=== PATIENT | male | born 1940 | race Caucasian/White ===

== ENCOUNTER 2017-01-04 10:44 | Outpatient (CLI) | payer MEDICARE | END 2017-01-04 10:45 | disposition home or self-care (01) | LOC: LAB 10:44 | PROVIDERS: ATTEND Internal Medicine | DX: Z01.818 Encounter for other preprocedural examination (principal) | CPT/HCPCS: 87640 ==

== ENCOUNTER 2020-04-05 05:33 | Emergency (ER) | payer MEDICARE ==
--- NOTE | 2020-04-05 05:47 | ED Physician Documentation ---
PD HPI ABD PAIN - Stated complaint Stated Complaint: ABD PX - History obtained from History obtained from: Patient - History of Present Illness Timing - onset: How many hours ago (5) Timing - duration: Hours (5) Timing - details: Abrupt onset, Still present Quality: Aching, Sharp, Pain Location: RLQ Radiation: Right flank Improved by: No: Laying still, Meds (tried Tylenol at home) Worsened by: No: Moving, Breathing, Palpation Associated symptoms: Nausea, Vomiting (few times, after pain started). No: Fever, Diarrhea, Dysuria, Hematuria, Chest pain Similar symptoms before: Has not had sx before Recently seen: Clinic (Valuated for right shoulder pain and as surgery planned April 21 but has preop cardiology clearance in progress with echo planned this week.) Review of Systems Constitutional: denies: Fever, Chills Nose: denies: Rhinorrhea / runny nose, Congestion Throat: denies: Sore throat Respiratory: denies: Cough GI: reports: Abdominal Pain (just this overnight) : denies: Dysuria, Hesitancy Neurologic: denies: Generalized weakness, Near syncope PD PAST MEDICAL HISTORY - Past Medical History Cardiovascular: Hypertension, Atrial flutter - Past Surgical History Past Surgical History: No General: Bowel surgery Ortho: Other - Present Medications Home Medications: Ambulatory Orders Medication Instructions Recorded Confirmed Ibuprofen 800 mg PO BID 09/29/13 09/29/13 Penicillin V Potassium 500 mg PO Q6H 10 Days tablet 09/29/13 Ondansetron Odt [Zofran] 4 mg TL Q6H PRN #10 tablet 04/05/20 Tamsulosin [Flomax] 0.4 mg PO DAILY #5 capsule 04/05/20 oxyCODONE [Roxicodone] 5 mg PO Q4-6H PRN #20 tablet 04/05/20 - Allergies Allergies/Adverse Reactions: Allergies Allergy/AdvReac Type Severity Reaction Status Date / Time No Known Drug Allergies Allergy Verified 09/29/13 17:45 - Social History Does the pt smoke?: Yes Smoking Status: Current every day smoker Does the pt drink ETOH?: No Does the pt have substance abuse?: No - Immunizations Immunizations: TDAP >10years/unknown - POLST Patient has POLST: No PD ED PE NORMAL - Vitals Vital signs reviewed: Yes - General General: Alert and oriented X 3, Well developed/nourished, Other (Is in considerable appearance of pain due to the right flank. He is moving around see mikayla trying to be comfortable. ) - Neck Neck: Supple, no meningeal sign, No adenopathy - Cardiac Cardiac: RRR, Other (1/6 murmur left heart. Regular rate of heart. ) - Respiratory Respiratory: Clear bilaterally - Abdomen Abdomen: Normal bowel sounds, Soft, Non tender, Non distended, No organomegaly - Male Male : Deferred - Rectal Rectal: Deferred - Back Back: Other (moderate right CVA tenderness. ) - Derm Derm: Normal color, Warm and dry - Extremities Extremities: No tenderness to palpate, Normal ROM s pain, No edema, No calf tenderness / cord - Neuro Neuro: Alert and oriented X 3, No motor deficit, Normal speech Eye Opening: Spontaneous Motor: Obeys Commands Verbal: Oriented GCS Score: 15 Results - Vitals Vitals: Vital Signs - 24 hr 04/05/20 04/05/20 05:45 06:06 Temperature 36.8 C Heart Rate 108 H 98 Respiratory 18 22 Rate Blood Pressure 142/98 H 142/90 H O2 Saturation 100 98 Oxygen O2 Source Room air - EKG (time done) presentation Rhythm: NSR (appears sinus with IVCD and LVH with repol changes. ) Intervals: Wide QRS QRS: LVH Ischemia: Non specific changes - Labs Labs: Laboratory Tests 04/05/20 04/05/20 04/05/20 06:00 06:00 06:25 WBC 10.2 RBC 4.31 L Hgb 13.7 L Hct 42.1 MCV 97.7 H MCH 31.8 H MCHC 32.5 RDW 13.2 Plt Count 235 MPV 9.7 Neut # (Auto) 8.8 H Lymph # (Auto) 0.7 L [place] # (Auto) 0.6 Eos # (Auto) 0.0 Baso # (Auto) 0.0 Absolute Nucleated RBC 0.00 Nucleated RBC % 0.0 Sodium 136 Potassium 4.4 Chloride 101 Carbon Dioxide 25 Anion Gap 10.0 BUN 24 H Creatinine 1.3 H Estimated GFR (MDRD) 53 L Glucose 156 H Calcium 9.8 Total Bilirubin 0.8 AST 22 ALT 22 Alkaline Phosphatase 35 L Total Protein 7.4 Albumin 4.6 Globulin 2.8 Albumin/Globulin Ratio 1.6 Lipase 25 Urine Color YELLOW Urine Clarity CLEAR Urine pH 6.0 Ur Specific [place] 1.025 Urine Protein NEGATIVE Urine Glucose (UA) NEGATIVE Urine Ketones NEGATIVE Urine Occult Blood LARGE H Urine Nitrite NEGATIVE Urine Bilirubin NEGATIVE Urine Urobilinogen 0.2 (NORMAL) Ur Leukocyte Esterase NEGATIVE Urine RBC TNTC H Urine WBC 0-3 Ur Squamous Epith Cells NONE SEEN Urine Crystals 3-5 Calcium Oxalate Urine Bacteria Few Ur Microscopic Review INDICATED Urine Culture Comments NOT INDICATED - Rads (name of study) No standard instances Radiology: Prelim report reviewed, EMP read contemporaneously (6 mm stone proximal third right ureter with mod hydroureter and hydronephrosis. ), See rad report PD MEDICAL DECISION MAKING - ED course Complexity details: reviewed results, re-evaluated patient (his pain is mostly gone with meds IV here. No nausea. CT showing ureteral stone. Discussed findings with patient. ), considered differential, d/w patient Departure - Departure Disposition: 01 Home, Self Care Clinical Impression: Right sided abdominal pain, Ureterolithiasis Condition: Stable Record reviewed to determine appropriate education?: Yes Instructions: ED Stone Renal W Colic Follow-Up: Lily Garcia MD [Primary Care Provider] - Prescriptions: Tamsulosin [Flomax] 0.4 mg PO DAILY #5 capsule oxyCODONE [Roxicodone] 5 mg PO Q4-6H PRN #20 tablet PRN Reason: Pain Ondansetron Odt [Zofran] 4 mg TL Q6H PRN #10 tablet PRN Reason: Nausea / Vomiting Comments: You do have a stone passing down the ureter on the right side which is what is causing your pain. It is good that you are feeling improved at this time and that likely is due to the pain medicine as well as reduction and spasming of the ureter to allow better flow of urine. Stay well-hydrated but there is no need to over hydrate. Continue usual m edications otherwise. Tylenol or ibuprofen if needed for basic pain. At oxycodone if needed for worse pain and ondansetron if needed for nausea. We also can add tamsulosin which is a medication that will reduce spasming of the ureter and have some added benefit in passing the stone. Follow-up with your primary care if not improved well over the next few days. Your primary provider may refer you to a urologist if the pain persists more than several days to a week or so. Return to the ER if severe pain not controlled with the above medications.
[2020-04-05] MEDS ORDERED: ONDANSETRON 4 MG/2 ML VIAL IVP STA (06:10)
[2020-04-05] MEDS ORDERED: SODIUM CHLORIDE 0.9% 1,000 ML IV STA (06:10)
[2020-04-05] MEDS ORDERED: HYDROmorphone 1 MG/ML CARPUJECT IVP STA (06:10)
[2020-04-05] MEDS ORDERED: KETOROLAC 15 MG/ML VIAL IVP STA (06:12)
[2020-04-05 06:16] LABS: BASOPHILS % (AUTO) 0.2 %; EOSINOPHILS % (AUTO) 0.1 %; HGB - HEMOGLOBIN 13.7 g/dL (14.0-18.0); LYMPHOCYTES # (AUTO) 0.7 10^3/uL (1.5-3.5); LYMPHOCYTES % (AUTO) 6.9 %; MEAN CORPUSCULAR HEMOGLOBIN 31.8 pg (27.0-31.0); MEAN CORPUSCULAR HGB CONC 32.5 g/dL (32.0-36.0); MEAN CORPUSCULAR VOLUME 97.7 fL (80.0-94.0); MEAN PLATELET VOLUME 9.7 fL (7.4-11.4); MONOCYTES # (AUTO) 0.6 10^3/uL (0.0-1.0); MONOCYTES % (AUTO) 5.7 %; NEUTROPHILS # (AUTO) 8.8 10^3/uL (1.5-6.6); NEUTROPHILS % (AUTO) 86.6 %; PLT - PLATELET COUNT 235 10^3/uL (130-450); RED BLOOD COUNT 4.31 10^6/uL (4.70-6.10); RED CELL DISTRIBUTION WIDTH 13.2 % (12.0-15.0); WHITE BLOOD COUNT 10.2 x10^3/uL (4.8-10.8)
[2020-04-05 06:29] LABS: ALBUMIN 4.6 g/dL (3.2-5.5); ALBUMIN/GLOBULIN RATIO 1.6 (1.0-2.2); BILIRUBIN,TOTAL 0.8 mg/dL (0.2-1.0); CALCIUM 9.8 mg/dL (8.5-10.3); CREATININE 1.3 mg/dL (0.6-1.2); TOTAL PROTEIN 7.4 g/dL (6.7-8.2)
[2020-04-05] MEDS ORDERED: IOVERSOL 320 100 ML VIAL IVP ONE ×2 (06:41→07:03)
[2020-04-05 06:42] LABS: BILIRUBIN,URINE NEGATIVE (NEGATIVE); GLUCOSE, URINE (UA) NEGATIVE (NEGATIVE); KETONES,URINE (UA) NEGATIVE (NEGATIVE); LEUKOCYTE ESTERASE, URINE NEGATIVE (NEGATIVE); NITRITE,URINE NEGATIVE (NEGATIVE); OCCULT BLOOD,URINE LARGE (NEGATIVE); PROTEIN,URINE NEGATIVE (NEGATIVE); UROBILINOGEN,URINE 0.2 (NORMAL) E.U./dL (NORMAL)
[2020-04-05 06:44] LABS: CLARITY,URINE CLEAR (CLEAR)
[2020-04-05 06:54] LABS: BACTERIA,URINE Few /HPF (None Seen); CRYSTALS,URINE 3-5 Calcium Oxalate /LPF; RBC,URINE TNTC /HPF (0-5); SQUAMOUS EPITHELIAL CELL,UR NONE SEEN (<= Few)
[2020-04-05] MEDS ORDERED: TAMSULOSIN 0.4 MG CAPSULE PO STA (07:27)
[2020-04-05 08:06] VITALS: BP 136/74
--- NOTE | 2020-04-05 09:34 | ED Physician Documentation ---
ED Addendum - Addendum Addendum: 04/05/20 09:33 Dr. Ramirez, radiologist called me about liver enhancement that will require dedicated liver MRI. Discussed with nursing who will call Mr. Acosta to discuss need for follow-up
--- NOTE | 2020-04-05 09:34 | CT Report ---
PROCEDURE: Abdomen/Pelvis W INDICATIONS: Abdominal pain, acute, nonlocalized CONTRAST: IV CONTRAST: Optiray 320 ml: 100 PO CONTRAST: *NO PO CONTRAST TECHNIQUE: After the administration of nonionic IV contrast, 5 mm thick sections acquired from the diaphragms to the symphysis. 5 mm thick coronal and sagittal reformats were acquired. For radiation dose reducti on, the following was used: automated exposure control, adjustment of mA and/or kV according to sajan ent size. COMPARISON: None. FINDINGS: Image quality: Excellent. ABDOMEN: Lung bases: Lung bases are clear. Heart size is normal. There is a small hiatal hernia seen. Moder ate coronary artery calcification is seen. Solid organs: The liver demonstrates normal size. Within the right inferior posterior liver (segment 6) there is enhancing focus seen laterally, as on series 3 image 35 that measures approximately 1.7 c m. The liver otherwise is unremarkable. Spleen demonstrates normal size, without focal abnormalities. Gallbladder wall does not appear thicke tierney. Biliary system is non dilated. Pancreas enhances normally. No adrenal nodules. There is an obstructing stone seen involving the right mid ureter, as on series 3 image 34 and on ser ies 3 image 51 that measures up to 6 mm. There is associated moderate to prominent right-sided hydrou reter and hydronephrosis. A mild degree of right-sided perinephric fat straining can also be seen. There is a nonobstructing left-sided kidney stone that measures up to 1 cm. Peritoneum and bowel: Bowel loops demonstrate normal wall thickness and caliber. No free fluid or a ir. Diverticulosis can be seen, without jackelyn findings of active diverticulitis. Nodes and vessels: No retroperitoneal or mesenteric adenopathy by size criteria. Aorta and inferior vena cava are normal in size. Miscellaneous: No ventral hernias. PELVIS: Genitourinary: Bladder wall thickness is normal. Miscellaneous: No inguinal hernias or adenopathy. Bones: No suspicious bony lesions. No vertebral body compression fractures. Relatively prominent l ower lumbar spine degenerative changes are seen. At least moderate degenerative change can be seen of the hip joints. IMPRESSION: 6 mm obstructing stone seen within the right mid ureter, with associated right-sided hyd ronephrosis, hydroureter, and prior precasting. No obstructing 1 cm left-sided kidney stone Focal area of hyperenhancement involving the liver. In a patient of this age, differential diagnosis includes metastatic disease. If it would be helpful for clinical management decision making, then ple ase consider a dedicated liver protocol MRI (without and with IV contrast) for further evaluation (as suming that there is no contraindication). Incidental note is made of: Small hiatal hernia Atherosclerotic calcification, including moderate coronary artery calcification Diverticulosis can be seen, without jackelyn findings of active diverticulitis. Note: Mild discrepancy from the preliminary report and recommendations discussed by telephone with Dr Eddei Jon at 8:32 AM [place] time on 04/05/2020. Reviewed by: Roger Ramirez MD on 04/05/2020 8:33 AM [place] Approved by: Roger Ramirez MD on 04/05/2020 8:33 AM [place] Station ID: [id number]
== END 2020-04-05 08:06 | disposition home or self-care (01) ==
LOC: ED 05:33
DX: N20.1 Calculus of ureter (principal); R10.31 Right lower quadrant pain; I10 Essential (primary) hypertension; F17.200 Nicotine dependence, unspecified, uncomplicated
CPT/HCPCS: 36415; 74177; 80053; 81001; 83690; 85025; 93005; 96374; 96375; 99284; A9270; J1170; Q9967; 81003; 87086

== ENCOUNTER 2020-04-09 04:56 | Emergency (ER) | payer MEDICARE ==
[2020-04-09] MEDS ORDERED: SODIUM CHLORIDE 0.9% 1,000 ML IV STA (05:32)
[2020-04-09] MEDS ORDERED: KETOROLAC 30 MG/ML VIAL IVP STA (05:32)
--- NOTE | 2020-04-09 05:37 | ED Physician Documentation ---
PD HPI ABD PAIN - Stated complaint Stated Complaint: ABD PX - Chief complaint Chief Complaint: Abd Pain - History obtained from History obtained from: Patient - History of Present Illness Timing - onset: How many days ago (4) Timing - duration: Days (4) Timing - details: Abrupt onset, Still present Quality: Sharp, Pain Location: RLQ Radiation: Right flank Improved by: Meds Worsened by: Other (nothing) Associated symptoms: Nausea, Vomiting Similar symptoms before: Diagnosis (uretrolithiasis) Recently seen: Emergency Dept - Additional information Additional information: 80-year-old male with a history of atrial fibrillation and a recent visit to the emergency department for abdominal pain has a 6 mm right mid ureter stone and he did have pain control of this until this evening. He states that he over the weekend did well and was decreasing his use of oxycodone and was only on Tylenol and his pain ramped back up and he has not been able to get control of it. Review of Systems Constitutional: denies: Fever Eyes: denies: Decreased vision Ears: denies: Ear pain Nose: denies: Congestion Throat: denies: Sore throat Cardiac: denies: Chest pain / pressure, Palpitations Respiratory: denies: Dyspnea, Cough GI: reports: Abdominal Pain, Nausea, Vomiting : denies: Dysuria, Frequency PD PAST MEDICAL HISTORY - Past Medical History Past Medical History: Yes Cardiovascular: Hypertension, Atrial flutter : Kidney stones HEENT: None - Past Surgical History Past Surgical History: No General: Bowel surgery Ortho: Other - Present Medications Home Medications: Ambulatory Orders Medication Instructions Recorded Confirmed Ibuprofen 800 mg PO BID 09/29/13 04/09/20 Penicillin V Potassium 500 mg PO Q6H 10 Days tablet 09/29/13 04/09/20 Ondansetron Odt [Zofran] 4 mg TL Q6H PRN #10 tablet 04/05/20 04/09/20 Tamsulosin [Flomax] 0.4 mg PO DAILY #5 capsule 04/05/20 04/09/20 oxyCODONE [Roxicodone] 5 mg PO Q4-6H PRN #20 tablet 04/05/20 04/09/20 Warfarin [Coumadin] 2.5 mg PO DAILY 04/09/20 04/09/20 - Allergies Allergies/Adverse Reactions: Allergies Allergy/AdvReac Type Severity Reaction Status Date / Time No Known Drug Allergies Allergy Verified 09/29/13 17:45 - Social History Does the pt smoke?: Yes Smoking Status: Current every day smoker Does the pt drink ETOH?: No Does the pt have substance abuse?: No - Immunizations Immunizations: TDAP >10years/unknown - POLST Patient has POLST: No PD ED PE NORMAL - Vitals Vital signs reviewed: Yes (tachy and hypertensive ) - General General: Alert and oriented X 3, No acute distress, Well developed/nourished - HEENT HEENT: Atraumatic, PERRL, EOMI - Neck Neck: Supple, no meningeal sign, No bony TTP - Cardiac Cardiac: No murmur, Other (irregularly irregular ) - Respiratory Respiratory: No respiratory distress, Clear bilaterally - Abdomen Abdomen: Normal bowel sounds, Soft, Non tender, Non distended, No organomegaly - Back Back: No CVA TTP, No spinal TTP - Derm Derm: Normal color, Warm and dry, No rash - Extremities Extremities: No deformity, No edema - Neuro Neuro: Alert and oriented X 3, 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, No motor deficit, No sensory deficit, Normal speech Eye Opening: Spontaneous Motor: Obeys Commands Verbal: Oriented GCS Score: 15 - Psych Psych: Normal mood, Normal affect Results - Vitals Vitals: Vital Signs - 24 hr 04/09/20 04/09/20 04/09/20 05:03 05:06 06:38 Temperature 36.3 C L 36.3 C L 36.3 C L Heart Rate 125 H 99 84 Respiratory 18 19 15 Rate Blood Pressure 141/82 H 141/82 H 129/73 O2 Saturation 98 98 99 Oxygen O2 Source Room air - EKG (time done) 0544 Rate: Rate (enter#) (125) Rhythm: Sinus tachycardia Intervals: Prolonged QT QRS: LVH Ischemia: Other (peaked T waves ) Compare to prior EKG: Changed from prior EKG (SPT 04-05-2020 the rate has increased and the QT interval has prolonged. ) Computer interpretation: Disagree with computer (The computer reads this a junctional tachycardia and I do see p waves) - Labs Labs: Laboratory Tests 04/09/20 04/09/20 04/09/20 05:08 05:42 05:42 WBC 12.4 H RBC 4.20 L Hgb 13.4 L Hct 41.1 L MCV 97.9 H MCH 31.9 H MCHC 32.6 RDW 13.0 Plt Count 248 MPV 10.1 Neut # (Auto) 10.5 H Lymph # (Auto) 0.6 L [place] # (Auto) 1.2 H Eos # (Auto) 0.0 Baso # (Auto) 0.0 Absolute Nucleated RBC 0.00 Nucleated RBC % 0.0 PT INR Sodium 138 Potassium 4.4 Chloride 99 L Carbon Dioxide 25 Anion Gap 14.0 H BUN 25 H Creatinine 1.4 H Estimated GFR (MDRD) 49 L Glucose 153 H Calcium 9.6 Total Bilirubin 1.1 H AST 34 ALT 44 Alkaline Phosphatase 37 L Total Protein 7.3 Albumin 4.7 Globulin 2.6 Albumin/Globulin Ratio 1.8 Lipase 24 Urine Color YELLOW Urine Clarity CLEAR Urine pH 5.5 Ur Specific [place] >=1.030 H Urine Protein NEGATIVE Urine Glucose (UA) NEGATIVE Urine Ketones TRACE Urine Occult Blood MODERATE H Urine Nitrite NEGATIVE Urine Bilirubin NEGATIVE Urine Urobilinogen 1 (NORMAL) Ur Leukocyte Esterase NEGATIVE Urine RBC 6-10 H Urine WBC 0-3 Ur Squamous Epith Cells MOD Squamous H Urine Crystals 6-10 Calcium Oxalate Urine Bacteria Rare Urine Mucus Few Strands Ur Microscopic Review INDICATED Urine Culture Comments NOT INDICATED 04/09/20 05:42 WBC RBC Hgb Hct MCV MCH MCHC RDW Plt Count MPV Neut # (Auto) Lymph # (Auto) [place] # (Auto) Eos # (Auto) Baso # (Auto) Absolute Nucleated RBC Nucleated RBC % PT 13.0 H INR 1.2 Sodium Potassium Chloride Carbon Dioxide Anion Gap BUN Creatinine Estimated GFR (MDRD) Glucose Calcium Total Bilirubin AST ALT Alkaline Phosphatase Total Protein Albumin Globulin Albumin/Globulin Ratio Lipase Urine Color Urine Clarity Urine pH Ur Specific [place] Urine Protein Urine Glucose (UA) Urine Ketones Urine Occult Blood Urine Nitrite Urine Bilirubin Urine Urobilinogen Ur Leukocyte Esterase Urine RBC Urine WBC Ur Squamous Epith Cells Urine Crystals Urine Bacteria Urine Mucus Ur Microscopic Review Urine Culture Comments PD MEDICAL DECISION MAKING - ED course Complexity details: reviewed old records, reviewed results, re-evaluated patient, considered differential, d/w patient ED course: 80 y/o male with a right ureteral lithiasis with a 6 mm stone has lost control of his pain and comes to the emergency department this morning for pain control. On initial evaluation the patient has a rapid heart rate and an electrocardiogram is obtained showing a sinus tachycardia with LVH. The electrocardiogram is dramatic itself and the rate is faster than his most recent electrocardiogram here from his most recent visit 4 days ago. He does have persistent hydronephrosis on the right side and an IV line is begun and he is given a liter of fluid and 30 mg of Toradol IV. His heart rate comes back down to 84. He has moderate control of his pain and he is given additionally Dilaudid 1 mg and Zofran 4 mg intravenously. Departure - Departure Disposition: 01 Home, Self Care Clinical Impression: Ureterolithiasis Instructions: ED Stone Renal W Colic Follow-Up: Lily Garcia MD [Primary Care Provider] - Jimmy Bermudez MD [Provider Admit Priv/Credential] -
[2020-04-09 05:40] LABS: BILIRUBIN,URINE NEGATIVE (NEGATIVE); GLUCOSE, URINE (UA) NEGATIVE (NEGATIVE); KETONES,URINE (UA) TRACE mg/dL (NEGATIVE); LEUKOCYTE ESTERASE, URINE NEGATIVE (NEGATIVE); NITRITE,URINE NEGATIVE (NEGATIVE); OCCULT BLOOD,URINE MODERATE (NEGATIVE); PH,URINE 5.5 PH (5.0-7.5); PROTEIN,URINE NEGATIVE (NEGATIVE); UROBILINOGEN,URINE 1 (NORMAL) E.U./dL (NORMAL)
[2020-04-09 05:41] LABS: CLARITY,URINE CLEAR (CLEAR)
[2020-04-09 05:47] LABS: BACTERIA,URINE Rare /HPF (None Seen); CRYSTALS,URINE 6-10 Calcium Oxalate /LPF; MUCUS,URINE Few Strands; SQUAMOUS EPITHELIAL CELL,UR MOD Squamous (<= Few)
[2020-04-09 05:59] LABS: BASOPHILS % (AUTO) 0.1 %; EOSINOPHILS % (AUTO) 0.1 %; HGB - HEMOGLOBIN 13.4 g/dL (14.0-18.0); LYMPHOCYTES # (AUTO) 0.6 10^3/uL (1.5-3.5); MEAN CORPUSCULAR HEMOGLOBIN 31.9 pg (27.0-31.0); MEAN CORPUSCULAR HGB CONC 32.6 g/dL (32.0-36.0); MEAN CORPUSCULAR VOLUME 97.9 fL (80.0-94.0); MEAN PLATELET VOLUME 10.1 fL (7.4-11.4); MONOCYTES # (AUTO) 1.2 10^3/uL (0.0-1.0); MONOCYTES % (AUTO) 9.5 %; NEUTROPHILS # (AUTO) 10.5 10^3/uL (1.5-6.6); NEUTROPHILS % (AUTO) 85.1 %; PLT - PLATELET COUNT 248 10^3/uL (130-450); WHITE BLOOD COUNT 12.4 x10^3/uL (4.8-10.8)
[2020-04-09 06:09] LABS: INR 1.2 (0.8-1.2)
[2020-04-09 06:14] LABS: ALBUMIN 4.7 g/dL (3.2-5.5); ALBUMIN/GLOBULIN RATIO 1.8 (1.0-2.2); BILIRUBIN,TOTAL 1.1 mg/dL (0.2-1.0); CALCIUM 9.6 mg/dL (8.5-10.3); CREATININE 1.4 mg/dL (0.6-1.2); TOTAL PROTEIN 7.3 g/dL (6.7-8.2)
[2020-04-09] MEDS ORDERED: ONDANSETRON 4 MG/2 ML VIAL IVP STA (06:27)
[2020-04-09] MEDS ORDERED: HYDROmorphone 1 MG/ML CARPUJECT IVP STA (06:27)
[2020-04-09 07:19] VITALS: BP 125/72
== END 2020-04-09 07:17 | disposition home or self-care (01) ==
LOC: ED 04:56
DX: N13.2 Hydronephrosis with renal and ureteral calculous obstruction (principal); I48.91 Unspecified atrial fibrillation; Z79.01 Long term (current) use of anticoagulants; I10 Essential (primary) hypertension; F17.200 Nicotine dependence, unspecified, uncomplicated; R94.31 Abnormal electrocardiogram [ECG] [EKG]; R00.0 Tachycardia, unspecified
CPT/HCPCS: 36415; 80053; 81001; 83690; 85025; 85610; 93005; 96361; 96374; 96375; 99284; J1170; 81003; 87086

== ENCOUNTER 2020-04-15 09:16 | Outpatient (CLI) | payer MEDICARE | END 2020-04-15 09:17 | disposition home or self-care (01) | LOC: DI 09:16 | PROVIDERS: ATTEND Internal Medicine | DX: I51.7 Cardiomegaly (principal); I34.0 Nonrheumatic mitral (valve) insufficiency | CPT/HCPCS: 93306 ==

== ENCOUNTER 2021-06-11 15:55 | Outpatient (CLI) | payer MEDICARE ==
[2021-06-11 16:14] LABS: BASOPHILS % (AUTO) 0.7 %; EOSINOPHILS # (AUTO) 0.2 10^3/uL (0.0-0.7); EOSINOPHILS % (AUTO) 2.5 %; HCT - HEMATOCRIT 41.6 % (42.0-52.0); HGB - HEMOGLOBIN 13.2 g/dL (14.0-18.0); LYMPHOCYTES # (AUTO) 2.2 10^3/uL (1.5-3.5); LYMPHOCYTES % (AUTO) 36.6 %; MEAN CORPUSCULAR HEMOGLOBIN 30.3 pg (27.0-31.0); MEAN CORPUSCULAR HGB CONC 31.7 g/dL (32.0-36.0); MEAN CORPUSCULAR VOLUME 95.6 fL (80.0-94.0); MEAN PLATELET VOLUME 9.2 fL (7.4-11.4); MONOCYTES # (AUTO) 0.8 10^3/uL (0.0-1.0); MONOCYTES % (AUTO) 13.5 %; NEUTROPHILS # (AUTO) 2.8 10^3/uL (1.5-6.6); NEUTROPHILS % (AUTO) 46.4 %; PLT - PLATELET COUNT 279 10^3/uL (130-450); RED BLOOD COUNT 4.35 10^6/uL (4.70-6.10); RED CELL DISTRIBUTION WIDTH 13.2 % (12.0-15.0); WHITE BLOOD COUNT 5.9 x10^3/uL (4.8-10.8)
[2021-06-11 16:25] LABS: ALBUMIN 4.5 g/dL (3.2-5.5); ALBUMIN/GLOBULIN RATIO 1.7 (1.0-2.2); BILIRUBIN,TOTAL 0.6 mg/dL (0.2-1.0); CALCIUM 9.4 mg/dL (8.5-10.3); CREATININE 1.2 mg/dL (0.6-1.2); POTASSIUM 4.7 mmol/L (3.5-5.0); TOTAL PROTEIN 7.2 g/dL (6.7-8.2)
[2021-06-11 16:37] LABS: THYROID STIMULATING HORMONE 3.27 uIU/mL (0.34-5.60)
== END 2021-06-11 15:56 | disposition home or self-care (01) ==
LOC: LAB.R 15:55
PROVIDERS: ATTEND Internal Medicine
DX: I50.22 Chronic systolic (congestive) heart failure (principal); R53.1 Weakness; R53.83 Other fatigue
CPT/HCPCS: 80053; 83880; 84443; 85025

== ENCOUNTER 2021-09-16 10:38 | Outpatient (CLI) | payer MEDICARE ==
--- NOTE | 2021-09-17 10:11 | XRAY Report ---
PROCEDURE: Foot 3 View LT INDICATIONS: LEFT FOOT PAIN TECHNIQUE: 3 views of the foot were acquired. COMPARISON: None FINDINGS: Bones: No fractures or dislocations. No suspicious bony lesions. Moderate first MTP joint osteoart hritis. Moderate midfoot osteoarthritis. Small calcaneal bone spurs. Soft tissues: No tibiotalar joint effusion. Achilles tendon appears normal. IMPRESSION: Osteoarthritis. Reviewed by: Faye Betancur MD, PhD on 09/17/2021 10:10 AM PDT Approved by: Faye Betancur MD, PhD on 09/17/2021 10:10 AM PDT Station ID: [id number]
== END 2021-09-16 10:39 | disposition home or self-care (01) ==
LOC: DI 10:38
PROVIDERS: ATTEND Internal Medicine
DX: M19.072 Primary osteoarthritis, left ankle and foot (principal)

== ENCOUNTER 2021-10-19 08:00 | Outpatient (CLI) | payer MEDICARE ==
[2021-10-19 15:43] LABS: BASOPHILS % (AUTO) 0.6 %; EOSINOPHILS # (AUTO) 0.2 10^3/uL (0.0-0.7); EOSINOPHILS % (AUTO) 3.4 %; HCT - HEMATOCRIT 39.9 % (42.0-52.0); HGB - HEMOGLOBIN 12.8 g/dL (14.0-18.0); LYMPHOCYTES # (AUTO) 1.5 10^3/uL (1.5-3.5); LYMPHOCYTES % (AUTO) 27.6 %; MEAN CORPUSCULAR HEMOGLOBIN 30.9 pg (27.0-31.0); MEAN CORPUSCULAR HGB CONC 32.1 g/dL (32.0-36.0); MEAN CORPUSCULAR VOLUME 96.4 fL (80.0-94.0); MEAN PLATELET VOLUME 9.4 fL (7.4-11.4); MONOCYTES # (AUTO) 0.6 10^3/uL (0.0-1.0); MONOCYTES % (AUTO) 11.8 %; NEUTROPHILS % (AUTO) 56.2 %; PLT - PLATELET COUNT 258 10^3/uL (130-450); RED BLOOD COUNT 4.14 10^6/uL (4.70-6.10); RED CELL DISTRIBUTION WIDTH 12.8 % (12.0-15.0); WHITE BLOOD COUNT 5.4 x10^3/uL (4.8-10.8)
[2021-10-19 15:52] LABS: CALCIUM 9.1 mg/dL (8.5-10.3); CREATININE 1.1 mg/dL (0.6-1.2); POTASSIUM 4.8 mmol/L (3.5-5.0)
== END 2021-10-19 23:59 | disposition home or self-care (01) ==
LOC: LAB.R 08:00
PROVIDERS: ATTEND Internal Medicine
DX: I48.92 Unspecified atrial flutter (principal); Z79.899 Other long term (current) drug therapy
CPT/HCPCS: 80048; 85025

== ENCOUNTER 2022-03-22 08:00 | Outpatient (CLI) | payer MEDICARE ==
[2022-03-22 21:18] LABS: BASOPHILS % (AUTO) 0.5 %; EOSINOPHILS # (AUTO) 0.2 10^3/uL (0.0-0.7); EOSINOPHILS % (AUTO) 2.9 %; HCT - HEMATOCRIT 43.6 % (42.0-52.0); HGB - HEMOGLOBIN 13.7 g/dL (14.0-18.0); LYMPHOCYTES # (AUTO) 1.6 10^3/uL (1.5-3.5); LYMPHOCYTES % (AUTO) 29.4 %; MEAN CORPUSCULAR HEMOGLOBIN 29.9 pg (27.0-31.0); MEAN CORPUSCULAR HGB CONC 31.4 g/dL (32.0-36.0); MEAN CORPUSCULAR VOLUME 95.2 fL (80.0-94.0); MONOCYTES # (AUTO) 0.7 10^3/uL (0.0-1.0); MONOCYTES % (AUTO) 11.6 %; NEUTROPHILS # (AUTO) 3.1 10^3/uL (1.5-6.6); NEUTROPHILS % (AUTO) 55.2 %; PLT - PLATELET COUNT 289 10^3/uL (130-450); RED BLOOD COUNT 4.58 10^6/uL (4.70-6.10); RED CELL DISTRIBUTION WIDTH 13.3 % (12.0-15.0); WHITE BLOOD COUNT 5.6 x10^3/uL (4.8-10.8)
[2022-03-22 21:40] LABS: % IRON SATURATION 23 % (20-50); ALBUMIN 4.6 g/dL (3.2-5.5); ALBUMIN/GLOBULIN RATIO 1.6 (1.0-2.2); ALKALINE PHOSPHATASE 37 IU/L (42-121); ALT ALANINE AMINOTRANSFERASE 16 IU/L (10-60); AST ASPARTATE AMINOTRANSFERASE 19 IU/L (10-42); BILIRUBIN,TOTAL 0.3 mg/dL (0.2-1.0); BUN - BLOOD UREA NITROGEN 23 mg/dL (6-20); CARBON DIOXIDE - CO2 25 mmol/L (21-32); CHLORIDE 101 mmol/L (101-111); CHOL/HDL RATIO 2.4 (<5.0); CHOLESTEROL 142 mg/dL; CREATININE 1.2 mg/dL (0.6-1.2); GFR - MDRD 58 (>89); GLUCOSE 97 mg/dL (70-100); HDL CHOLESTEROL 60 mg/dL; IRON 79 ug/dL (45-182); LDL CHOLESTEROL,CALCULATED 64 mg/dL; LDL/HDL RATIO 1.1 (<3.6); SODIUM 136 mmol/L (135-145); TOTAL IRON BINDING CAPACITY 350 ug/dL (250-450); TOTAL PROTEIN 7.5 g/dL (6.7-8.2); TRANSFERRIN 250 mg/dL (180-329); TRIGLYCERIDES 89 mg/dL; VLDL CHOLESTEROL 18 mg/dL
[2022-03-22 21:50] LABS: THYROID STIMULATING HORMONE 2.66 uIU/mL (0.34-5.60)
[2022-03-22 21:58] LABS: FERRITIN 157.4 ng/mL (23.9-336.2)
[2022-03-22 22:01] LABS: FOLATE 12.93 ng/mL (5.90 - >24.8)
[2022-03-23 12:59] LABS: ESTIMATED AVERAGE GLUCOSE 128 mg/dL (70-100); HEMOGLOBIN A1c% 6.1 % (4.27-6.07)
== END 2022-03-22 23:59 | disposition home or self-care (01) ==
LOC: LAB.R 08:00
PROVIDERS: ATTEND Internal Medicine
DX: Z00.00 Encounter for general adult medical examination without abnormal findings (principal); I48.92 Unspecified atrial flutter; I50.9 Heart failure, unspecified; R73.9 Hyperglycemia, unspecified; M19.90 Unspecified osteoarthritis, unspecified site; I49.3 Ventricular premature depolarization; C61 Malignant neoplasm of prostate
CPT/HCPCS: 80053; 80061; 82607; 82728; 82746; 83036; 83540; 83721; 84153; 84443; 84466; 85025

== ENCOUNTER 2022-05-22 10:18 | Emergency (ER) | payer MEDICARE ==
[2022-05-22 10:28] VITALS: BP 134/60
--- NOTE | 2022-05-22 13:00 | ED Physician Documentation ---
History of Present Illness - Stated complaint Stated Complaint: L LOWER JAW PX - Chief complaint Chief Complaint: Heent - History obtained from History obtained from: Patient - History of Present Illness Timing: Today Pain level max: 4 Pain level now: 0 - Additonal information Additional information: 82-year-old male presents to the emergency department complaint of left lower dental pain. Ongoing for the past several weeks. No pain currently. He states that he has been worked up by dentistry, his PCP and awaiting an appointment with an oral surgeon. He states he is here for pain control. Currently not having any pain. Nothing seems to make it better or worse. No fevers. No chills. Review of Systems Constitutional: denies: Fever, Chills GI: denies: Vomiting Skin: denies: Rash PD PAST MEDICAL HISTORY - Past Medical History Past Medical History: Yes Cardiovascular: Hypertension, High cholesterol, Atrial flutter Respiratory: None Neuro: None Endocrine/Autoimmune: None GI: None : Kidney stones HEENT: None Psych: None Musculoskeletal: Osteoarthritis Derm: None - Past Surgical History Past Surgical History: No General: Bowel surgery Ortho: Other - Present Medications Home Medications: Ambulatory Orders Medication Instructions Recorded Confirmed Benzocaine [Benzodent] 1 applic MM Q6H PRN #1 each 05/22/22 Dabigatran Etexilate Mesylate 150 mg ORAL BID 05/22/22 05/22/22 [Pradaxa] HYDROcod/ACETAM 5/325 [[place] 5/325] 1 - 2 ea PO Q6H PRN #14 tablet 05/22/22 Rosuvastatin Calcium [Crestor] 10 mg PO HS 05/22/22 05/22/22 Sacubitril/Valsartan [Entresto 97 1 each PO BID 05/22/22 05/22/22 mg-103 mg Tablet] Spironolactone [Aldactone] 25 mg PO DAILY 05/22/22 05/22/22 - Allergies Allergies/Adverse Reactions: Allergies Allergy/AdvReac Type Severity Reaction Status Date / Time No Known Drug Allergies Allergy Verified 05/22/22 10:28 - Social History Does the pt smoke?: Yes Smoking Status: Current every day smoker Does the pt drink ETOH?: No Does the pt have substance abuse?: No - Immunizations Immunizations are current?: No Immunizations: TDAP >10years/unknown - POLST Patient has POLST: No PD ED PE NORMAL - Vitals Vital signs reviewed: Yes - General General: Alert and oriented X 3, No acute distress - HEENT HEENT: Moist mucous membranes, Dentition benign, Other (Normal intraoral exam. No facial swelling. No redness. No drainage.) - Cardiac Cardiac: RRR - Respiratory Respiratory: No respiratory distress, Clear bilaterally - Derm Derm: Warm and dry - Neuro Neuro: Alert and oriented X 3 - Psych Psych: Normal mood, Normal affect Results - Vitals Vitals: Vital Signs - 24 hr 05/22/22 10:24 Temperature 36.4 C L Heart Rate 60 Respiratory 18 Rate Blood Pressure 134/60 H O2 Saturation 100 Oxygen O2 Source Room air PD Medical Decision Making - ED course Complexity details: considered differential, d/w patient ED course: Patient with left-sided dental pain ongoing for the past several weeks. Unclear etiology. Dental versus neuralgia versus other. No sign of infection today. He states he saw dentist 2 days ago and had normal x-rays of the teeth. We will place on benzocaine topically and Vicodin for breakthrough pain. Patient is well-appearing, nontoxic. Afebrile. Patient counseled regarding signs and symptoms for which I believe and urgent re-evaluation would be necessary. Patient with good understanding of and agreement to plan and is comfortable going home at this time This document was made in part using voice recognition software. While efforts are made to proofread this document, sound alike and grammatical errors may occur. Departure - Departure Disposition: 01 Home, Self Care Clinical Impression: Pain, dental Condition: Good Instructions: ED Tooth Pain Follow-Up: Lily Garcia MD [Primary Care Provider] - Within 1 week Prescriptions: Benzocaine [Benzodent] 1 applic MM Q6H PRN #1 each PRN Reason: dental pain HYDROcod/ACETAM 5/325 [[place] 5/325] 1 - 2 ea PO Q6H PRN #14 tablet PRN Reason: Pain Comments: Please use the medications as prescribed. Please follow-up with your doctor for further care. Please return if you worsen. Your prescriptions were sent to [facility] in [place] I am prescribing a short course of narcotic pain medication for you. These are potentially dangerous and addictive medications that should be used carefully. These medications may constipate you. Take an [id number] stool softener (docusate) twice daily with plenty of water while taking these medications. If you go 24 hours without a bowel movement, take [id number] miralax, per package instructions. Do not drink or drive while taking these medications. If you received narcotic or sedating medications while in the emergency department, do not drive for 24 hours. Store this medication in a safe, secure place and out of reach of children. It is a violation of federal law to give or sell this medication to another person or to use in a manner other than prescribed. The ED will not refill narcotic prescriptions, including prescriptions lost or stolen. To dispose of unwanted medications: 1. [facility] at [address] [facility] in [place] has a medication drop box. They accept prescription medications (in pill form) Tuesday through Tuesday 9:00 a.m. to 5:00 p.m. 2. The [facility] [place] [employer] accepts prescription medications (in pill form only) for disposal year round. Call for more information. 3. Contact the [facility] for the next [facility] sponsored prescription drug collection event. , [phone], or [phone];
== END 2022-05-22 13:04 | disposition home or self-care (01) ==
LOC: ED 10:18
DX: K08.89 Other specified disorders of teeth and supporting structures (principal); I10 Essential (primary) hypertension; F17.200 Nicotine dependence, unspecified, uncomplicated
CPT/HCPCS: 99282; 99283

== ENCOUNTER 2022-08-13 13:14 | Outpatient (CLI) | payer MEDICARE ==
--- NOTE | 2022-08-13 14:19 | XRAY Report ---
PROCEDURE: Chest 2 View X-Ray INDICATIONS: COUGH TECHNIQUE: 2 views of the chest were acquired. COMPARISON: None. FINDINGS: Surgical changes and devices: None. Lungs and pleura: There is interstitial prominence. No focal consolidation. No pleural effusions or pneumothorax. Mediastinum: Mediastinal contours appear normal. Heart size is normal. Bones and chest wall: No suspicious bony lesions. Overlying soft tissues appear unremarkable. IMPRESSION: No acute cardiopulmonary process. Reviewed by: Tiffanie Ramirez MD on 08/13/2022 2:18 PM PDT Approved by: Tiffanie Ramirez MD on 08/13/2022 2:18 PM PDT Station ID: [id number]
== END 2022-08-13 13:15 | disposition home or self-care (01) ==
LOC: DI 13:14
PROVIDERS: ATTEND Internal Medicine
DX: R05.1 Acute cough (principal)

== ENCOUNTER 2022-09-02 13:33 | Outpatient (CLI) | payer MEDICARE ==
--- NOTE | 2022-09-02 21:30 | MRI Report ---
PROCEDURE: BRAIN WO INDICATIONS: APHASIA, DIZINESS TECHNIQUE: Noncontrast axial T1 spin echo, axial T2 fast spin echo, sagittal and axial FLAIR, coronal T2 fast sp in echo, axial gradient echo, axial diffusion and ADC through the brain. COMPARISON: None. FINDINGS: Image quality: Excellent. CSF Spaces: Basal cisterns are patent. No extra-axial fluid collections. Ventricles are normal in size and shape. Brain: No intracranial masses or hemorrhage. Brooks/white matter interface is normal. Brainstem appe ars normal. Diffusion-weighted images demonstrate no acute ischemic insult. No chronic ischemic ins ults. Normal intravascular flow voids are present. Age-appropriate brain parenchymal volume loss an d chronic small vessel ischemic change can be seen. Skull and face: Calvarium has normal marrow signal. Orbits appear normal. Incidental note is made of bilateral lens replacements. Sinuses: Minimal generalized mucosal thickening can be seen within the paranasal sinuses. There is a mild degree of mastoid air cell fluid seen on both sides. IMPRESSION: Brain MRI within normal limits for age, with note made of brain parenchymal volume loss and chronic s mall vessel ischemic change. No findings of acute or subacute infarction are seen. Reviewed by: Roger Ramirez MD on 09/02/2022 8:28 PM YUSRA Approved by: Roger Ramirez MD on 09/02/2022 8:28 PM YUSRA Station ID: [id number]
== END 2022-09-02 13:34 | disposition home or self-care (01) ==
LOC: DI 13:33
PROVIDERS: ATTEND Internal Medicine
DX: R47.01 Aphasia (principal); R42 Dizziness and giddiness; I67.82 Cerebral ischemia

== ENCOUNTER 2022-09-07 14:22 | Outpatient (CLI) | payer MEDICARE ==
--- NOTE | 2022-09-08 09:49 | Ultrasound Report ---
PROCEDURE: Carotid Doppler Complete INDICATIONS: APHASIA TECHNIQUE: Color and pulse Doppler interrogation was performed of both carotid systems, with image documentation and velocity measurements. COMPARISON: None. FINDINGS: Right side: Brachial blood pressure: 133/61 mm Hg. Common carotid artery peak systolic velocity: 73 cm/sec. Internal carotid artery peak systolic velocity: 69 cm/sec. Internal carotid artery end diastolic velocity: 17 cm/sec. External carotid artery peak systolic velocity: 72 cm/sec. ICA/CCA peak systolic ratio: 0.95 . Brooks scale imaging description: Mild plaque Percent internal carotid artery stenosis: Less than 50 percent stenosis. Vertebral artery: Flow direction is antegrade. Left side: Brachial blood pressure: 126/53 mm Hg. Common carotid artery peak systolic velocity: 89 cm/sec. Internal carotid artery peak systolic velocity: 74 cm/sec. Internal carotid artery end diastolic velocity: 22 cm/sec. External carotid artery peak systolic velocity: 64 cm/sec. ICA/CCA peak systolic ratio: 0.83 . Brooks scale imaging description: Moderate plaque Percent internal carotid artery stenosis: Less than 50 percent stenosis. Vertebral artery: Flow direction is antegrade. IMPRESSION: 1. In the right internal carotid artery, there is less than 50 percent stenosis based on peak systoli c velocity criteria. 2. In the left internal carotid artery, there is less than 50 percent stenosis based on peak systolic velocity criteria. 3. Antegrade blood flow within the right vertebral artery. 4. Antegrade blood flow within the left vertebral artery. The estimate of stenosis included in the report of the imaging study was calculated using the [facility]-end orsed standards of carotid artery stenosis. Reviewed by: Jerome Jimenez MD on 09/08/2022 9:48 AM PDT Approved by: Jerome Jimenez MD on 09/08/2022 9:48 AM PDT Station ID: [id number]
== END 2022-09-07 14:23 | disposition home or self-care (01) ==
LOC: DI 14:22
PROVIDERS: ATTEND Internal Medicine
DX: I65.23 Occlusion and stenosis of bilateral carotid arteries (principal); R47.01 Aphasia
CPT/HCPCS: 93880

== ENCOUNTER 2023-07-18 09:18 | Outpatient (CLI) | payer MEDICARE ==
--- NOTE | 2023-07-18 13:27 | MRI Report ---
PROCEDURE: Lumbar Spine WO INDICATIONS: LOW BACK PAIN TECHNIQUE: Noncontrast sagittal T1 spin echo and T2 fast echo, sagittal STIR, axial T1 and T2 fast spin echo thr ough the lumbar spine. In cases with scoliosis, additional coronal T2 fast spin echo may be performe d. COMPARISON: None. FINDINGS: Image quality: Excellent. Alignment and Curvature: 7 mm retrolisthesis of L5 on S1. Bone Marrow: Marrow is of normal overall signal. No acute vertebral body compression fractures. Spinal Cord: Conus medullaris terminates at the T12/L1 level. Visualized cord demonstrates normal s ignal and size. Paraspinous Soft Tissues: No paravertebral masses. T12-L1: Facet hypertrophy. No canal stenosis or foraminal stenosis. L1-L2: Severe chronic disc height loss. Short pedicles. Posterior disc plus osteophyte. Facet and ligament hypertrophy. Moderate central canal stenosis. Moderate bilateral foraminal stenosis.. L2-L3: Congenitally short pedicles. Chronic disc height loss. Disc bulge. Facet and ligament hyper trophy. Moderate canal stenosis. Mild to moderate left foraminal stenosis. L3-L4: Congenitally short pedicles. Severe disc height loss. Posterior disc plus osteophyte. Facet and ligament hypertrophy. Severe canal stenosis. This is of both the central canal and lateral recess es. Mild to moderate bilateral foraminal stenosis. L4-L5: Congenitally short pedicles. Severe chronic disc height loss. Posterior disc plus osteophyte . Facet hypertrophy. Severe canal stenosis. Moderate right foraminal narrowing with flattening deform ity on the exiting right L4 nerve root. Moderate to severe left foraminal narrowing with left foramin al L4 nerve root impingement. L5-S1: Congenitally short pedicles. Severe disc height loss. Retrolisthesis of L5 on S1. Posterior disc protrusion. Facet hypertrophy. Moderate canal stenosis. Mild to moderate bilateral foraminal rajni nosis. IMPRESSION: 1.. Patient has underlying congenitally short pedicles, and there is multilevel underlying facet arth ropathy. 2. Canal stenosis is moderate at L1-L2, moderate at L2-L3, severe at L3-L4, severe at L4-L5, and mode rate at L5-S1. 3. Multilevel foraminal narrowing as described above. Findings include moderate to severe left forami nal narrowing at L4-L5. Reviewed by: Flash Santa MD on 07/18/2023 1:25 PM PDT Approved by: Flash Santa MD on 07/18/2023 1:25 PM PDT Station ID: [id number]
== END 2023-07-18 09:19 | disposition home or self-care (01) ==
LOC: DI 09:18
PROVIDERS: ATTEND Internal Medicine
DX: M47.816 Spondylosis without myelopathy or radiculopathy, lumbar region (principal); M51.27 Other intervertebral disc displacement, lumbosacral region; M47.817 Spondylosis without myelopathy or radiculopathy, lumbosacral region; M48.07 Spinal stenosis, lumbosacral region; M48.061 Spinal stenosis, lumbar region without neurogenic claudication

== ENCOUNTER 2023-07-28 11:51 | Outpatient (CLI) | payer MEDICARE | END 2023-07-28 11:52 | disposition home or self-care (01) | LOC: LAB 11:51 | PROVIDERS: ATTEND Urology | DX: C61 Malignant neoplasm of prostate (principal); R35.0 Frequency of micturition | CPT/HCPCS: 36415; 84153; 87077; 87086; 87181 ==

== ENCOUNTER 2023-08-19 08:00 | Outpatient (CLI) | payer MEDICARE | END 2023-08-19 23:59 | disposition home or self-care (01) | LOC: LAB 08:00 | PROVIDERS: ATTEND Registered Nurse | DX: H60.00 Abscess of external ear, unspecified ear (principal) | CPT/HCPCS: 87070 ==

== ENCOUNTER 2023-12-01 08:00 | Outpatient (CLI) | payer MEDICARE | END 2023-12-01 23:59 | disposition home or self-care (01) | LOC: LAB 08:00 | PROVIDERS: ATTEND Urology | DX: R30.0 Dysuria (principal) | CPT/HCPCS: 87077; 87086; 87181 ==

== ENCOUNTER 2023-12-21 15:38 | Outpatient (CLI) | payer MEDICARE ==
--- NOTE | 2023-12-22 15:21 | Ultrasound Report ---
PROCEDURE: Renal (Retroperitoneal) INDICATIONS: UTI TECHNIQUE: Real-time scanning was performed of the retroperitoneal organs, with image documentation. COMPARISON: None. FINDINGS: Kidneys: Kidneys are mildly atrophic with increased echogenicity. Right kidney measures 10.1 cm long ; left kidney measures 10.8 cm long. Right renal cortical thickness is 1.6 cm; left renal cortical t hickness is 1.4 cm. No solid masses, hydronephrosis, or nephrolithiasis. Simple left renal cyst delbert suring 1 cm. Bladder: Pre-void bladder volume is 390 mL. Post-void residual is 192 mL. Pre-void images demonstr ate no intraluminal masses or stones. On pre-void images, bilateral ureteral jets are noted with col or Doppler interrogation. (Of note, ureteral jets may not be detectable in up to 25% of cases due to insufficient differences in specific gravity between ureteral and bladder urine). Prostate is enlar ged. Miscellaneous: No free abdominal fluid. IMPRESSION: Increased echogenicity suggestive medical renal disease. Prominent post void residual suggestive of urinary retention likely secondary to prostate hypertrophy . Reviewed by: Shelia Driscoll MD on 12/22/2023 3:19 PM PDT Approved by: Shelia Driscoll MD on 12/22/2023 3:19 PM PDT Station ID: [id number]
== END 2023-12-21 15:39 | disposition home or self-care (01) ==
LOC: DI 15:38
PROVIDERS: ATTEND Urology
DX: N39.0 Urinary tract infection, site not specified (principal); R93.5 Abnormal findings on diagnostic imaging of other abdominal regions, including retroperitoneum

== ENCOUNTER 2023-12-27 10:46 | Outpatient (CLI) | payer MEDICARE | END 2023-12-27 10:47 | disposition home or self-care (01) | LOC: LAB 10:46 | PROVIDERS: ATTEND Urology | DX: C61 Malignant neoplasm of prostate (principal) | CPT/HCPCS: 36415; 84153 ==

== ENCOUNTER 2024-11-23 14:11 | Inpatient (IN) ==
--- OUTSIDE RECORDS SUMMARY | 2024-11-23 14:42 | EXTERNAL MEDICAL SUMMARY RPT | Continuity of Care Document ---
Author Organization [facility] Address [address] [place] [id number] Phone Problems date description facility 2024-11-20 12:22 Acute bronchitis, unspecified [facility] 2024-11-20 15:17 Acute bronchitis, unspecified [facility] 2024-11-22 14:50 Benign prostatic hyp erplasia with lower urinary tract symptoms [facility] 2024-11-23 08:29 Other abnormal findings in [facility] 2024-11-23 14:24 Malignant neoplasm of prostate [facility] 2024-11-23 14:24 Benign prostatic hyp erplasia with lower urinary tract symptoms [facility] 2024-11-23 14:24 Other abnormal findings in [facility] Social History date description facility
[2024-11-23 17:15] LABS: HCT - HEMATOCRIT 28.7 % (42.0-52.0); HGB - HEMOGLOBIN 9.3 g/dL (14.0-18.0); MEAN PLATELET VOLUME 8.2 fL (7.4-11.4); NRBC ABSOLUTE COUNT (AUTO) 0.00 x10^3/uL; NUCLEATED RED BLOOD CELLS AUTO 0.0 /100WBC; PLT - PLATELET COUNT 307 10^3/uL (130-450); RED CELL DISTRIBUTION WIDTH 13.0 % (12.0-15.0)
[2024-11-23 17:27] LABS: ALT ALANINE AMINOTRANSFERASE 13.0 IU/L (10-60); AST ASPARTATE AMINOTRANSFERASE 14.0 IU/L (10-42); BUN - BLOOD UREA NITROGEN 14.0 mg/dL (6-20); CARBON DIOXIDE - CO2 24.0 mmol/L (21-32); CREATININE 0.9 mg/dL (0.6-1.3); GFR - MDRD 81.0 (>89)
[2024-11-23 17:33] LABS: TROPONIN I HIGH SENSITIVITY 33.6 ng/L (2.3-19.7)
--- NOTE | 2024-11-23 18:00 | XRAY Report ---
PROCEDURE: XR Chest 1V INDICATIONS: sob, cough TECHNIQUE: One view of the chest was acquired. COMPARISON: 08/13/2022. FINDINGS: Surgical changes and devices: None. Lungs and pleura: No pleural effusions or pneumothorax. No consolidation. Mediastinum: Mediastinal contours appear normal. Heart size is normal. Bones and chest wall: No suspicious bony lesions. Overlying soft tissues appear unremarkable. IMPRESSION: No acute cardiopulmonary process. Reviewed by: Flash Santa MD on 11/23/2024 5:59 PM PDT Approved by: Flash Santa MD on 11/23/2024 5:59 PM PDT Station ID: [id number]
--- NOTE | 2024-11-23 18:50 | CT Report ---
PROCEDURE: CT Head WO INDICATIONS: concern for tia work up TECHNIQUE: CT of the head was performed, without intravenous contrast. Reformats: Coronal and sagittal. For radiation dose reduction, the following was used: automated exposure control, adjustment of mA and/or kV according to patient size. COMPARISON: Brain MRI dated 09/02/2022. FINDINGS: Image quality: Diagnostic. CSF spaces: Basal cisterns are patent. No extra-axial fluid collections. Ventricles are normal in size and shape. Brain: No midline shift. No intracranial mass effect or hemorrhage. Brooks- white matter interface is normal. Age appropriate volume loss and periventricular white matter hypoattenuation, likely chronic ischemic change. Skull and face: Calvarium and visualized facial bones are intact, without suspicious lesions. Sinuses: Visualized sinuses and mastoids are clear. IMPRESSION: No acute intracranial pathology. Reviewed by: Flash Santa MD on 11/23/2024 6:49 PM PDT Approved by: Flash Santa MD on 11/23/2024 6:49 PM PDT Station ID: [id number]
--- NOTE | 2024-11-23 18:53 | CT Report ---
PROCEDURE: CT Angio Head/Neck INDICATIONS: TIA work up, word slurring CONTRAST: 80ml omni 300 TECHNIQUE: After the administration of intravenous contrast, images werenacquired from the aortic arch through the [place] of [place]. 3-dimensional yflnxpr-[id number]-gppsxxmlhi (MIP) and volume rendering reformats were acquired of the central intracranial vasculature and neck separately. COMPARISON: CT head from the same day. FINDINGS: Image quality: Diagnostic. Cerebral CT Angiogram: Internal carotid arteries: No acute findings. Intracranial ICA are patent with no significant stenosis. No occlusion. No aneurysm. Anterior cerebral arteries: Unremarkable. No significant stenosis. No occlusion. No aneurysm. Middle cerebral arteries: Unremarkable. No significant stenosis. No occlusion. No aneurysm. Posterior cerebral arteries: Unremarkable. No significant stenosis. No occlusion. No aneurysm. Basilar artery: Unremarkable. No significant stenosis. No occlusion. No aneurysm. Vertebral arteries: Unremarkable as visualized. Dural venous sinuses: Unremarkable given phase of enhancement. Other: Arterial phase appearance of the brain parenchyma is unremarkable. Neck CT Angiogram: Internal carotid arteries: Unremarkable. No significant stenosis. No dissection or occlusion. Common carotid arteries: Unremarkable. No significant stenosis. No dissection or occlusion. External carotid arteries: Unremarkable. No occlusion. Vertebral arteries: Unremarkable. No significant stenosis. No dissection or occlusion. Aortic Arch and Mediastinum: Partially visualized aortic arch unremarkable without evidence of aneurysm. Origins of the great vessels unremarkable. Other: Arterial phase soft tissues of the neck and chest are unremarkable. IMPRESSION: Unremarkable CT angiogram of the head and neck The estimate of stenosis included in the report of the imaging study was calculated using the NASCET method Reviewed by: Flash Santa MD on 11/23/2024 6:52 PM PDT Approved by: Flash Santa MD on 11/23/2024 6:52 PM PDT Station ID: [id number]
[2024-11-23 19:35] LABS: GLUCOSE, URINE (UA) NEGATIVE (NEGATIVE); KETONES,URINE (UA) NEGATIVE (NEGATIVE); OCCULT BLOOD,URINE NEGATIVE (NEGATIVE)
[2024-11-23 19:36] LABS: SQUAMOUS EPITHELIAL CELL,UR FEW Squamous (<= Few); WBC CLUMPS,URINE PRESENT
--- NOTE | 2024-11-23 19:37 | ED Physician Documentation ---
History of Present Illness Stated complaint Stated Complaint: TROUBLE SPEAKING, LOSS OF FACIAL MOVEMENT Chief complaint Chief Complaint: General History obtained from History obtained from: Patient History of Present Illness Timing: Prior to arrival Additonal information Additional information: Patient 84-year-old male presenting to the emergency department with concerning findings for TIA after having an episode of trouble speaking last night while he was talking to his he notes he was slurring speech symptoms lasted for for about 10 minutes went to the walk-in clinic this morning as his symptoms had resolved quickly last night and was sent here to the ED for concerns for TIA workup. Patient has no history of stroke no history of TIAs. He has past medical history remarkable for atrial fibrillation on pradaxa and HLD, HTN, Patient was started on ciprofloxacin a few weeks ago after recent UTI but those symptoms resolved continues to have persistent cough congestion earlier this week was seen at the walk-in clinic 11/19 diagnosed with acute bronchitis and discharged home. Patient denies any chest pain no shortness of breath no lower leg swelling he reports generalized fatigue associated with the symptoms. Meds/Allgy Home Medications Ambulatory Orders Medication Instructions Recorded Confirmed dabigatran etexilate 150 mg 150 mg ORAL BID 05/22/22 0 11/23/24 capsule (Pradaxa) rosuvastatin 10 mg tablet (Crestor) 10 mg PO HS 11/23/24 sacubitril 97 mg-valsartan 103 mg 1 ea PO BID 05/22/22 11/23/24 tablet (Entresto) spironolactone 25 mg tablet 25 mg PO DAILY 05/22/22 (Aldactone) finasteride 5 mg tablet 5 mg PO QDAY #90 tabs 11/23/24 tamsulosin 0.4 mg capsule (Flomax) 0.4 mg PO .nightly #90 caps 04/20/24 11/23/24 ciprofloxacin HCl 500 mg tablet 500 mg PO Q12H 5 11/23/24 (Cipro) Allergies Allergies Allergy/AdvReac Type Severity Reaction Status Date / Time No Known Drug Allergies Allergy Verified 11/23/24 14:24 PFSH Active Problems All Active Problems (Updated 11/23/24 @ 20:15 by Laurel Ferreira PA-C) Weakness (Acute) Fatigue (Acute) Acute hyponatremia (Acute) Scalp bruising (Acute) Medical History Medical History (Updated 11/23/24 @ 20:15 by Laurel Ferreira PA-C) High cholesterol HTN (hypertension) Cervical spinal stenosis BPH loc w urin obs/LUTS Prostate cancer Social History Social History Smoking Status: Current every day smoker Relationship: Do you feel safe in your home environment?: Yes Suffered physical, verbal, emotional, or financial abuse?: No History of Abuse: No Are you sexually active?: No POLST Patient has POLST: No Exam Exam Vital Signs: Vital Signs x48h Pulse Resp BP Pulse Ox 11/23/24 21:00 74 20 123/62 97 11/23/24 19:12 69 18 150/70 H 98 11/23/24 19:00 66 17 150/70 H 99 11/23/24 17:02 68 18 142/70 H 97 Constitutional normal general appearance HENMT normocephalic Eyes PERRL, EOMs intact bilaterally and conjunctivae normal Neck/C-Spine visual inspection normal Lymph no lymphadenopathy noted Chest inspection of chest normal Respiratory breath sounds equal bilaterally, normal respiratory effort and clear to auscultation bilaterally Cardiovascular normal heart rate noted, regular rhythm noted and no gallop Gastrointestinal abdomen normal to inspection Genitourinary no CVA tenderness Back/Pelvis spine normal to inspection Neurology Cranial nerves III through XII intact normal coordination speech normal strength in upper and lower extremities GCS 15 answering questions appropriately here in the ED. Results Vitals Vitals: Vital Signs - 24 hr 11/23/24 14:17 11/23/24 17:02 11/23/24 19:00 Temperature 36.0 C L Temperature Source Temporal Artery Scan Pulse Rate 67 68 66 Respiratory Rate 20 18 17 Blood Pressure 137/64 H 142/70 H 150/70 H O2 Saturation 99 97 99 O2 Source Room air Room air Room air Pain Intensity 0 0 11/23/24 19:12 11/23/24 21:00 Temperature Temperature Source Pulse Rate 69 74 Respiratory Rate 18 20 Blood Pressure 150/70 H 123/62 O2 Saturation 98 97 O2 Source Room air Pain Intensity 0 Oxygen O2 Source Room air Labs Labs: Laboratory Tests 11/23/24 11/23/24 11/23/24 17:06 17:26 18:00 WBC 5.8 RBC 3.19 L Hgb 9.3 L Hct 28.7 L MCV 90.0 MCH 29.2 MCHC 32.4 RDW 13.0 Plt Count 307 MPV 8.2 Neut # (Auto) 3.3 Lymph # (Auto) 1.5 [place] # (Auto) 0.7 Eos # (Auto) 0.3 Baso # (Auto) 0.0 Absolute Nucleated RBC 0.00 Nucleated RBC % 0.0 PT 17.1 H INR 1.5 H Sodium 122 L Potassium 4.9 H Chloride 92 L Carbon Dioxide 24 Anion Gap 6.0 BUN 14 Creatinine 0.9 Estimated GFR (MDRD) 81 L Glucose 105 H Lactic Acid 0.7 Calcium 8.7 Total Bilirubin 0.3 AST 14 ALT 13 Alkaline Phosphatase 46 Troponin I High Sens 33.6 H* Total Protein 6.6 Albumin 3.7 Globulin 2.9 Albumin/Globulin Ratio 1.3 Procalcitonin Immunoas < 0.05 Urine Color YELLOW Urine Clarity CLEAR Urine pH 6.0 Ur Specific [place] 1.015 Urine Protein NEGATIVE Urine Glucose (UA) NEGATIVE Urine Ketones NEGATIVE Urine Occult Blood NEGATIVE Urine Nitrite NEGATIVE Urine Bilirubin NEGATIVE Urine Urobilinogen 0.2 (NORMAL) Ur Leukocyte Esterase TRACE H Urine RBC 0-5 Urine WBC 6-10 H Urine WBC Clumps PRESENT Ur Squamous Epith Cells FEW Squamous Urine Bacteria None Seen Ur Microscopic Review INDICATED Urine Culture Comments INDICATED Urine Sodium 49.0 11/23/24 19:33 WBC RBC Hgb Hct MCV MCH MCHC RDW Plt Count MPV Neut # (Auto) Lymph # (Auto) [place] # (Auto) Eos # (Auto) Baso # (Auto) Absolute Nucleated RBC Nucleated RBC % PT INR Sodium Potassium Chloride Carbon Dioxide Anion Gap BUN Creatinine Estimated GFR (MDRD) Glucose Lactic Acid Calcium Total Bilirubin AST ALT Alkaline Phosphatase Troponin I High Sens 36.2 H* Total Protein Albumin Globulin Albumin/Globulin Ratio Procalcitonin Immunoas Urine Color Urine Clarity Urine pH Ur Specific [place] Urine Protein Urine Glucose (UA) Urine Ketones Urine Occult Blood Urine Nitrite Urine Bilirubin Urine Urobilinogen Ur Leukocyte Esterase Urine RBC Urine WBC Urine WBC Clumps Ur Squamous Epith Cells Urine Bacteria Ur Microscopic Review Urine Culture Comments Urine Sodium PD Medical Decision Making ED course Complexity details: reviewed old records and reviewed results ED course: Patient is a 31-year-old male presenting to the emergency department with concerns for trouble speaking that occurred last night symptoms have been going on for about 10 minutes but resolved shortly he has been evaluated on 11/19 for concerns for acute bronchitis he was given some medications to go home with but was not feeling better he recently finished a course of ciprofloxacin for UTI symptoms but denies any persistent symptoms he has no fevers or chills he has no persistent cough or shortness of breath no chest pain associated with the symptoms no persistent difficulty word finding unilateral weakness numbness or tingling associate with symptoms physical exam shows no focal deficits patient able to provide history here in the ED without difficulty he has cranial nerves III through XII intact GCS 15. Labs here in the emergency department show CBC is normal CMP shows hyponatremia at 122 patient's baseline from about 2 years ago was in the 135 recheck patient significantly hyponatremic no slight elevation in glucose or other electrolyte abnormality to explain this. He has no significant GISELL. UA shows 6-10 leukocytes but few squamous cells as well lower suspicion for UTI causing the symptoms as opposed to hyponatremia. Patient sent for CT head and CTA to evaluate for possible TIA chest x-ray shows no acute findings here in the ED. EKG shows left bundle branch block but this appears stable from about 3 years ago additionally patient appears in sinus rhythm despite history of atrial fibrillation today. He has slightly elevated troponin at 33 will repeat here in the ED. CT head:No acute intracranial pathology. CT angiogram: Unremarkable CT angiogram of the head and neck CXR: No acute cardiopulmonary process. Troponin trended here in the ED from 33-36 with no significant elevation is not having any chest pain no shortness of breath EKG showing left bundle branch block but appears to be present in the past as well. Will continue to trend Trope I do not suspect this was causing his symptoms today. His significant hyponatremia here in the ED I believe would be causing his symptoms he has not been eating or drinking appropriately with his recent acute bronchitis diagnosis. He is on spironolactone but no hydrochlorothiazide that could explain his symptoms. He has no significant GISELL and his other labs are stable. Imaging here in the ED was reassuring and he is not having any difficulty with word finding and just generalized weakness and fatigue at this time. Calculated patient's free water deficit and will continue with 500 cc of fluid every hour and recheck his sodium at midnight for reevaluation to determine how he is doing on replacement. Lavon was attempted to be admitted but we are full on beds and patient will board here in the ED. Discharge Plan Discharge Patient Disposition: 66 [facility] DC/Xfer Condition: Good Clinical Impression: Acute hyponatremia, Fatigue, Weakness Prescriptions: No Action tamsulosin [Flomax] 0.4 mg capsule 0.4 mg PO .nightly Qty: 90 3RF spironolactone [Aldactone] 25 MG tablet 25 mg PO DAILY rosuvastatin [Crestor] 10 MG tablet 10 mg PO HS dabigatran etexilate [Pradaxa] 150 MG capsule 150 mg ORAL BID sacubitril-valsartan [Entresto] 1 EACH tablet 1 ea PO BID finasteride 5 mg tablet 5 mg PO QDAY Qty: 90 3RF ciprofloxacin HCl [Cipro] 500 mg tablet 500 mg PO Q12H Print Language: Serbian
[2024-11-23 19:58] LABS: INR 1.5 (0.8-1.2); PT - PROTHROMBIN TIME 17.1 secs (9.9-12.6)
[2024-11-23] MEDS: SODIUM CHLORIDE 0.9% 1,000 ML IV STA ×2 (20:13→22:13)
[2024-11-23] MEDS ORDERED: ONDANSETRON 4 MG/2 ML VIAL IVP PRN (20:18)
[2024-11-23] MEDS ORDERED: ACETAMINOPHEN 500 MG TABLET PO PRN (20:18)
[2024-11-23] MEDS: ATORVASTATIN 10 MG TABLET PO SCH (22:10)
[2024-11-23] MEDS: TAMSULOSIN 0.4 MG CAPSULE PO SCH (22:11)
[2024-11-23] MEDS: SACUBITRIL VALSARTAN PO SCH (22:11)
[2024-11-23 22:57] LABS: ALT ALANINE AMINOTRANSFERASE 12.0 IU/L (10-60); AST ASPARTATE AMINOTRANSFERASE 11.0 IU/L (10-42); BUN - BLOOD UREA NITROGEN 12.0 mg/dL (6-20); CARBON DIOXIDE - CO2 24.0 mmol/L (21-32); CREATININE 0.9 mg/dL (0.6-1.3); GFR - MDRD 81.0 (>89)
[2024-11-23 22:59] LABS: TROPONIN I HIGH SENSITIVITY 38.2 ng/L (2.3-19.7)
[2024-11-24 01:46] LABS: BUN - BLOOD UREA NITROGEN 12.0 mg/dL (6-20); CARBON DIOXIDE - CO2 23.0 mmol/L (21-32); CREATININE 0.9 mg/dL (0.6-1.3); GFR - MDRD 81.0 (>89)
--- NOTE | 2024-11-24 01:59 | ED Physician Documentation ---
ED Addendum Addendum Addendum: 84-year-old overnight with my care at shift change with hyponatremia has a repeat sodium of 127 up from 122 earlier in the day. I evaluated the patient with bedside ultrasound found his inferior vena cava at 9.3 mm consistent with a 2 L deficit. He is administered a liter of saline. He tells me he has not slept well for several weeks and we are administering some Ativan for him to get some sleep this evening. At shift change he is awaiting bed placement for treatment of hyponatremia. Discharge Plan Discharge Patient Disposition: 66 [facility] DC/Xfer Condition: Good Clinical Impression: Acute hyponatremia, Fatigue, Weakness Prescriptions: No Action tamsulosin [Flomax] 0.4 mg capsule 0.4 mg PO .nightly Qty: 90 3RF spironolactone [Aldactone] 25 MG tablet 25 mg PO DAILY rosuvastatin [Crestor] 10 MG tablet 10 mg PO HS dabigatran etexilate [Pradaxa] 150 MG capsule 150 mg ORAL BID sacubitril-valsartan [Entresto] 1 EACH tablet 1 ea PO BID finasteride 5 mg tablet 5 mg PO QDAY Qty: 90 3RF ciprofloxacin HCl [Cipro] 500 mg tablet 500 mg PO Q12H Print Language: Croatian
[2024-11-24] MEDS: SODIUM CHLORIDE 0.9% 1,000 ML IV STA (02:11)
[2024-11-24 04:31] LABS: HCT - HEMATOCRIT 26.9 % (42.0-52.0); HGB - HEMOGLOBIN 8.7 g/dL (14.0-18.0); MEAN PLATELET VOLUME 8.3 fL (7.4-11.4); NRBC ABSOLUTE COUNT (AUTO) 0.00 x10^3/uL; NUCLEATED RED BLOOD CELLS AUTO 0.0 /100WBC; PLT - PLATELET COUNT 275 10^3/uL (130-450); RED CELL DISTRIBUTION WIDTH 13.2 % (12.0-15.0)
[2024-11-24 04:45] LABS: BUN - BLOOD UREA NITROGEN 11.0 mg/dL (6-20); CARBON DIOXIDE - CO2 22.0 mmol/L (21-32); CREATININE 0.8 mg/dL (0.6-1.3); GFR - MDRD 92.0 (>89)
[2024-11-24] MEDS: PANTOPRAZOLE 40 MG TABLET PO SCH (06:37)
[2024-11-24] MEDS: APIXABAN 5 MG TABLET PO SCH (09:41)
[2024-11-24] MEDS: SACUBITRIL VALSARTAN PO SCH (09:45)
--- NOTE | 2024-11-24 10:13 | ED Physician Documentation ---
ED Addendum Addendum Addendum: .Patient with a past medical history of A-fib on apixaban status post left hip replacement in late September presents with generalized weakness and diarrhea since Tuesday. Diarrhea resolved 2 days ago. Denies abdominal pain. Noted by previous provider to be hyponatremic with sodium 122. Given 2 L bolus with uptrending sodium. On my exam currently is nontoxic. Denies any chest pain or abdominal pain currently. Vitals are stable. Do note uptrending troponin as well. Given recent surgery CTA ordered to rule out PE. 2 EKG EKGs yesterday without significant change from previous on chart review in 2019 or dynamic changes. He has no chest pain currently doubt ACS. Considered CT abdomen pelvis but given no abdominal tenderness or pain will not pursue at this time. Case discussed with hospitalist who agrees to accept patient to their service for treatment of dehydration and hyponatremia pending results of repeat Troponin and CT. Discharge Plan Discharge Condition: Good Clinical Impression: Acute hyponatremia, Fatigue, Weakness Prescriptions: No Action tamsulosin [Flomax] 0.4 mg capsule 0.4 mg PO .nightly Qty: 90 3RF spironolactone [Aldactone] 25 MG tablet 25 mg PO DAILY rosuvastatin [Crestor] 10 MG tablet 10 mg PO HS dabigatran etexilate [Pradaxa] 150 MG capsule 150 mg ORAL BID sacubitril-valsartan [Entresto] 1 EACH tablet 1 ea PO BID metoprolol succinate 50 mg tablet extended release 24 hr 50 mg PO BID finasteride 5 mg tablet 5 mg PO QDAY Qty: 90 3RF ciprofloxacin HCl [Cipro] 500 mg tablet 500 mg PO Q12H Print Language: Citizen Of [place] Stand Alone Forms: PCP List
[2024-11-24 10:30] LABS: BUN - BLOOD UREA NITROGEN 10.0 mg/dL (6-20); CARBON DIOXIDE - CO2 23.0 mmol/L (21-32); CREATININE 0.9 mg/dL (0.6-1.3); GFR - MDRD 81.0 (>89)
--- NOTE | 2024-11-24 11:14 | CT Report ---
PROCEDURE: CT Angio Chest INDICATIONS: ELEV TROP WEAKNESS CONTRAST: 80ml omni 300 TECHNIQUE: After the administration of intravenous contrast, 2 mm axial images were acquired from the pulmonary apices to the posterior costophrenic angles during the arterial phase. In addition, 1 mm lung kernel and 5 mm soft tissue kernel reconstructions were performed. 3-dimensional coronal oblique maximum intensity projection (MIP) reformats, 8 mm axial MIP, and 5 mm coronal and sagittal MPR reformats were then performed through the thorax. For radiation dose reduction, the following was used: automated exposure control, adjustment of mA and/or kV according to patient size. COMPARISON: None. FINDINGS: Image quality: Excellent. Large vessels: No filling defects within the opacified pulmonary arteries, accounting for motion and contrast timing. No evidence of acute aortic syndrome or aortic aneurysm. Lungs and pleura: No consolidation. No pleural effusions. No pneumothorax. No suspicious pulmonary nodules which require follow up. Mild bronchial thickening. Mediastinum: Heart size is enlarged. No pericardial effusion. No large vessel abnormality. No mediastinal adenopathy by size criteria. Three-vessel coronary calcifications. Chest wall and lower neck: Thyroid is unremarkable. No axillary or supraclavicular adenopathy by size. Bones: No aggressive osseous abnormality. Upper Abdomen: Partially visualized, nonobstructing left-sided nephrolithiasis measuring 4 mm. IMPRESSION: No pulmonary embolus. Mild central bronchial thickening, which may indicate bronchitis. Marked coronary artery calcifications. Reviewed by: Garrett Pulliam MD on 11/24/2024 11:12 AM PDT Approved by: Garrett Pulliam MD on 11/24/2024 11:12 AM PDT Station ID: [id number]
--- NOTE | 2024-11-24 11:42 | HISTORY & PHYSICAL EXAMINATION ---
Chief Complaint Chief Complaint Chief Complaint: Expressive aphasia, diarrhea, weakness History of Present Illness Admitted From Admitted From:: Home History Obtained From Records Reviewed: EMR History obtained from: Patient Exam Limitations: None History of Present Illness HPI Comment/Other: Patient is a 84-year-old male with a history of heart failure with reduced ejection fraction, atrial fibrillation on Eliquis who presents for a few complaints. About a week ago, patient got his COVID-vaccine, RSV vaccine, as well as his pneumo VAX. Since then, he has had some ongoing fevers, chills, mild upper respiratory symptoms. Following this, he had some large-volume, loose stools which lasted for a few days. A couple days ago, he was talking to his , when he suddenly was unable to form words. He stated that he could think of the words, he could just not get them out. This has happened to him once before. He has never had a stroke in the past. The symptoms resolved quickly, they have not recurred. At this time, he feels a lot better. His weakness and dizziness has improved quite a bit as well. He denies any fevers, chills. He does have a mild cough and runny nose. In the emergency room, patient was normotensive, blood pressure was 123/62, heart rate was 74, satting 97% on room air. He was afebrile. Lab work showed a normal white count, hemoglobin of 8.7; we do not have a baseline for him in recent years. He denies any dark stools, bleeding etc., especially on his blood thinner. His sodium was found to be very low at 122, and it is improved to 129 with some IV fluids that he received in the emergency room, 2.5 L. His troponin was mildly elevated at 38.2, when as high as 44, and is now trending down to 42.2. He has had no chest pain. His EKG does show a left bundle branch block, which he states is known. I have requested records from his vp publisher development. He was admitted for hyponatremia, generalized weakness, as well as this expressive aphasia. Meds/Allgy Home Medications Ambulatory Orders Medication Instructions Recorded Confirmed dabigatran etexilate 150 mg 150 mg ORAL BID 05/22/22 0 11/23/24 capsule (Pradaxa) rosuvastatin 10 mg tablet (Crestor) 10 mg PO HS 11/23/24 sacubitril 97 mg-valsartan 103 mg 1 ea PO BID 05/22/22 11/23/24 tablet (Entresto) spironolactone 25 mg tablet 25 mg PO DAILY 05/22/22 (Aldactone) finasteride 5 mg tablet 5 mg PO QDAY #90 tabs 11/23/24 tamsulosin 0.4 mg capsule (Flomax) 0.4 mg PO .nightly #90 caps 04/20/24 11/23/24 ciprofloxacin HCl 500 mg tablet 500 mg PO Q12H 5 11/23/24 (Cipro) metoprolol succinate 50 mg 75 mg PO DAILY 11/24/24 tablet,extended release 24 hr Allergies Allergies Allergy/AdvReac Type Severity Reaction Status Date / Time No Known Drug Allergies Allergy Verified 11/23/24 14:24 PFSH Active Problems All Active Problems (Updated 11/24/24 @ 14:06 by Faustino Damian MD) Atrial fibrillation (Acute) Heart failure with reduced ejection fraction (Acute) Expressive aphasia (Acute) Weakness (Acute) Fatigue (Acute) Acute hyponatremia (Acute) Scalp bruising (Acute) Medical History Medical History High cholesterol HTN (hypertension) Cervical spinal stenosis BPH loc w urin obs/LUTS Prostate cancer Social History Social History Smoking Status: Former smoker If you are a former smoker, when did you quit? (Date/Year): 07/2024 Number of Years Smoked: 35 Do you vape?: No Relationship: Level: Independent Home Mobility Equipment: Cane Do you feel safe in your home environment?: Yes Suffered physical, verbal, emotional, or financial abuse?: No History of Abuse: No Are you sexually active?: No POLST Patient has POLST: No Review of Systems Constitutional Reports: Fatigue, Weakness and Poor appetite; Denies: Fever, Chills or Malaise Eyes Denies: Pain, Irritation, Blurry vision, Vision loss, Diplopia or Eye discomfort Ears, nose, mouth, and throat Denies: Ear pain, Hearing loss, Tinnitus, Nose bleeds or Nasal discharge Cardiovascular Denies: Irregular heart rate, chest pain, palpitations, edema, Syncope or shortness of breath with exertion Respiratory Denies: Shortness of breath, Cough, Sputum production or Wheezing Gastrointestinal Reports: Poor appetite and Diarrhea; Denies: Abdominal pain, Abdominal distention, Nausea, Vomiting, Constipation, Bloating or Belching Genitourinary Reports: Painful urination and Urinary urgency; Denies: Urinary frequency Musculoskeletal Denies: Back pain, Extremity pain, Extremity swelling or Joint pain Integumentary/Breast Denies: Rash, Itching, Dryness, Redness or Skin pain Neurological Reports: General weakness, Dizziness, Confusion and Difficulty communicating thoughts; Denies: Headache, Weakness in extremities, Numbness in extremities or Abnormal gait Psychiatric Denies: Depression or Anxiety Endocrine Reports: Fatigue; Denies: Excessive urination or Excessive thirst Hematologic/Lymphatic Denies: Anemia, Easy bruising or Easy bleeding Allergic/Immunologic Denies: Hives, Tongue swelling, Facial swelling or Wheezing Prior Level of Functionality: Independent of ADLs. Exam Exam Vital Signs: Vital Signs x48h Temp Pulse Pulse Resp BP BP Pulse Ox 11/24/24 12:23 98.1 F 81 16 128/66 96 11/24/24 12:12 80 20 115/57 L 95 11/24/24 11:00 75 16 140/74 H 97 11/24/24 09:00 87 18 121/62 95 11/24/24 06:00 72 21 116/53 L 97 Constitutional normal general appearance, no apparent distress and average body habitus [facility] normocephalic, head/scalp atraumatic and hearing grossly normal bilaterally Eyes PERRL, EOMs intact bilaterally and conjunctivae normal Neck/C-Spine visual inspection normal, trachea midline and cervical spine nontender Chest inspection of chest normal Respiratory breath sounds equal bilaterally, normal respiratory effort, clear to auscultation bilaterally, no wheezes, no rales and no retractions Cardiovascular normal heart rate noted, rhythm abnormal (irregular), no gallop, no rub and no murmur Gastrointestinal abdomen normal to inspection, abdomen soft to palpation and nontender to palpation Genitourinary no CVA tenderness and bladder normal to palpation Back/Pelvis spine normal to inspection, no thoracic spine tenderness and no lumbar spine tenderness Extremities normal to inspection, normal to palpation, no tenderness and full ROM Neurology no movement abnormality noted, no focal motor deficit noted and speech normal Psychiatry mental status grossly normal, oriented x3, thought process normal, cooperative and affect normal Skin skin color normal, no rash, no lesions and no wounds Conclusion/Plan Problem List (1) Acute hyponatremia: Plan: Related to GI losses, diarrhea. Hold spironolactone and Lasix at this time. Received 2.5 L of IV fluid resuscitation. Not continued. Goal correction of 6-8 mill equivalents in 24 hours. Continue to trend twice daily. (2) Expressive aphasia: Plan: Patient presented with expressive aphasia which is now completely resolved. No other focal neurological deficits noted. TIA, MRI brain ordered, pending. (3) Heart failure with reduced ejection fraction: Plan: EKG did show left bundle branch block, which is not new for the patient. Cardiology records are requested. Troponin was slightly elevated, is now downtrending. No active chest pain noted. Echo was ordered, pending. Continue Entresto and metoprolol. Hold spirnolactone, Lasix at this time as patient is volume depleted. (4) High cholesterol: Plan: Continue statin. (5) BPH loc w urin obs/LUTS: Plan: Continue Flomax and finasteride. (6) Atrial fibrillation: Plan: Continue Eliquis while inpatient, continue metoprolol. Qualifiers: Atrial fibrillation type: unspecified chronic Qualified Code(s): I48.20 - Chronic atrial fibrillation, unspecified Lab Results 11/24/24 04:15 11/24/24 10:03 Diagnostic Imaging Results Diagnostic Imaging Results: positive Final report reviewed EKG Results EKG Interpreted Independently: Yes Core Measures Anticipated LOS I expect patient to be DC'd or transferred within 96 hours.: Yes DVT/VTE - Prophylaxis VTE/DVT Device ordered at admit?: No VTE/DVT Prophylaxis med ordered at admit?: Yes
[2024-11-24] MEDS ORDERED: SODIUM CHLORIDE FLUSH 0.9% 10 ML SYRINGE IVP PRN (12:21)
[2024-11-24] MEDS ORDERED: ONDANSETRON ODT 4 MG TABLET TL PRN (12:21)
[2024-11-24] MEDS ORDERED: ONDANSETRON 4 MG/2 ML VIAL IVP PRN (12:21)
[2024-11-24] MEDS ORDERED: ACETAMINOPHEN 325 MG TABLET PO PRN (12:21)
--- NOTE | 2024-11-24 13:59 | PHARMACY PROGRESS NOTE ---
Best Possible Medication History Admit Date and Time: 11/24/24 [id number] Home Medications Medication Instructions Recorded Confirmed Type dabigatran etexilate 150 mg 150 mg ORAL BID 05/22/22 0 11/23/24 History capsule (Pradaxa) rosuvastatin 10 mg tablet (Crestor) 10 mg PO HS 11/23/24 History sacubitril 97 mg-valsartan 103 mg 1 ea PO BID 05/22/22 11/23/24 History tablet (Entresto) spironolactone 25 mg tablet 25 mg PO DAILY 05/22/22 History (Aldactone) finasteride 5 mg tablet 5 mg PO QDAY #90 tabs 11/23/24 Rx tamsulosin 0.4 mg capsule (Flomax) 0.4 mg PO .nightly #90 caps 04/20/24 11/23/24 Rx ciprofloxacin HCl 500 mg tablet 500 mg PO Q12H 5 11/23/24 History (Cipro) metoprolol succinate 50 mg 75 mg PO DAILY 11/24/24 History tablet,extended release 24 hr Processed by: Nursing Medications reviewed in ED?: Yes Medication History completed: Yes Patient Interview: Completed Secondary Source(s): Pharmacy records and Insurance records [facility] Statement: As the person ultimately responsible for medication therapy, providers are able to order a medication from an existing home medication list in [facility] via the "Reconcile Routine" prior to Confirmation of that medication by desktop support associate. Such practice is discouraged except when the physician, in their clinical judgment, deems that a medical need exists for a medication without regard to previous use.
[2024-11-24] MEDS: SODIUM CHLORIDE FLUSH 0.9% 10 ML SYRINGE IVP SCH (20:46)
--- NOTE | 2024-11-25 00:07 | ECHO Report ---
Version: 1 Study ID: [id number] [id number] Adult Echocardiogram Report Name: DENTON MEMBRENO Study Date: 11/24/2024, 4: 38 PM BP: 125 / 68 mmHg Patient Location: [id number] HR: 88 bpm : 1940 (MM/DD/YYYY) Gender: Male Height: 72 in Age: 84 Years Weight: 168 lb BSA: 1.98 m² Reason For Study: >TIA Interpretation Summary Global left ventricular systolic function is normal. The visual left ventricular ejection fraction is estimated at 55 to 60%. The right ventricle is normal in size and function. No concerning cardiac valve disease is noted. Left Ventricle: There is mild concentric increase in the wall thickness of the left ventricle. The left ventricle is grossly normal size. No thrombus seen in the left ventricle. The visual left ventricular ejection fraction is estimated at 55 to 60%. Global left ventricular systolic function is normal. Right Ventricle: The right ventricle is normal in size and function. TAPSE is consistent with normal right ventricular function. The tricuspid annular plane systolic excursion (TAPSE) measurement is 2.5 cm. Aortic Valve: The aortic valve is moderately calcified. The aortic valve is trileaflet. No hemodynamically significant valvular aortic stenosis. Mild aortic regurgitation is present. Mitral Valve: The mitral valve leaflets are structurally normal with normal motion. No evidence of mitral stenosis is seen. There is mild mitral regurgitation. Tricuspid Valve: The tricuspid valve is normal in structure and function. There is no tricuspid stenosis. Mild tricuspid regurgitation present. Pulmonic Valve: The pulmonic valve is normal in structure and function. There is no pulmonic valvular stenosis. Trace pulmonic valvular regurgitation is present. Left Atrium: The left atrium is mildly to moderately dilated. Right Atrium: The right atrium is mildly to moderately dilated. The inferior vena cava appears normal. Atrial Septum: The interatrial septum appears normal, without evidence of shunt by 2D imaging and color Doppler. Aorta: The ascending aorta is normal in size. The transverse arch is normal in size. The sinuses of Valsalva are normal in size. Pulmonary Artery: The pulmonary artery is normal size. The pulmonary artery systolic pressure is normal. Inferior vena cava dynamics indicate normal right atrial pressures. The right ventricular systolic pressure is 35mmHg. Pericardium/Pleural Space: The pericardium appears normal. Left Ventricle IVSd: 1.47 cm LVIDd: 5.6 cm LVPWd: 1.03 cm LVIDs: 4.4 cm ESV(sp4-el): 87.7 ml Right Ventricle TAPSE: 2.5 cm RV S Ari: 15.6 cm/sec Atria LA dimension: 6.2 cm LAV(MOD-sp4): 78.3 ml LAV(MOD-sp2): 76.6 ml Aortic Valve LVOT diam: 2.04 cm LV V1 mean P.9 mmHg LV V1 mean: 81.4 cm/sec LV V1 VTI: 22.6 cm Ao V2 VTI: 40.3 cm Ao mean P.4 mmHg Ao V2 mean: 139.2 cm/sec LV V1 max: 101.1 cm/sec LV V1 max P.1 mmHg Ao max P.9 mmHg Ao V2 max: 186.2 cm/sec Mitral Valve MV max P.9 mmHg MV V2 max: 110.2 cm/sec MV mean P.84 mmHg MV V2 mean: 58.6 cm/sec MV V2 VTI: 17.2 cm Tricuspid Valve TR max P.0 mmHg TR max ari: 282.9 cm/sec TV max P.0 mmHg Aorta Ao root diam: 2.8 cm MMode/2D Measurements & Calculations Ao root diam: 2.8 cm BMI: 22.8 kilograms/m² BSA([facility]): 1.97 m² ESV(sp4-el): 87.7 ml IVSd: 1.47 cm LA A4C-A/L: 25.0 cm² LA dimension: 6.2 cm LA ESV-A/L: 81.4 ml LA Vol Index: 37.3 ml/m² LAV(MOD-sp2): 76.6 ml LAV(MOD-sp4): 78.3 ml LVIDd: 5.6 cm LVIDs: 4.4 cm LVOT diam: 2.04 cm LVPWd: 1.03 cm RA A4Cs: 22.7 cm² TAPSE: 2.5 cm Doppler Measurements & Calculations Ao max P.9 mmHg Ao mean P.4 mmHg Ao V2 max: 186.2 cm/sec Ao V2 mean: 139.2 cm/sec Ao V2 VTI: 40.3 cm LV V1 max: 101.1 cm/sec LV V1 max P.1 mmHg LV V1 mean: 81.4 cm/sec LV V1 mean P.9 mmHg LV V1 VTI: 22.6 cm MV max P.9 mmHg MV mean P.84 mmHg MV V2 max: 110.2 cm/sec MV V2 mean: 58.6 cm/sec MV V2 VTI: 17.2 cm PA max P.5 mmHg PA V2 max: 117.0 cm/sec RV S Ari: 15.6 cm/sec TR max P.0 mmHg TR max ari: 282.9 cm/sec TV max P.0 mmHg Other Measurements & Calculations Ao root area: 6.3 cm² KIERA(I,D): 1.84 cm² KIERA(V,D): 1.78 cm² EDV(Teich): 151.0 ml EF(sp-el): 50.0 % EF(Teich): 42.7 % ESV(Teich): 86.6 ml FS: 21.3 % LVOT area: 3.3 cm² MVA(VTI): 4.3 cm² SV(LVOT): 73.9 ml MD Norma Tyson 11/25/2024, 12: 07 AM Ordering Physician: Faustino Damian Referring Physician: Franco Light Performed By: NEEL
[2024-11-25] MEDS: BENZONATATE 100 MG CAPSULE PO PRN (00:58)
[2024-11-25 04:54] LABS: HCT - HEMATOCRIT 26.9 % (42.0-52.0); HGB - HEMOGLOBIN 8.6 g/dL (14.0-18.0); MEAN PLATELET VOLUME 8.3 fL (7.4-11.4); PLT - PLATELET COUNT 300.0 10^3/uL (130-450); RED CELL DISTRIBUTION WIDTH 13.4 % (12.0-15.0)
[2024-11-25 05:11] LABS: BUN - BLOOD UREA NITROGEN 10.0 mg/dL (6-20); CARBON DIOXIDE - CO2 23.0 mmol/L (21-32); CREATININE 0.7 mg/dL (0.6-1.3); GFR - MDRD 108.0 (>89)
[2024-11-25] MEDS: SACUBITRIL VALSARTAN PO SCH (09:18)
[2024-11-25] MEDS: FINASTERIDE 5 MG TABLET PO SCH (09:18)
[2024-11-25] MEDS: METOPROLOL SUCCINATE 25 MG TABLET PO SCH (09:18)
[2024-11-25] MEDS: cefTRIAXone 1 GM VIAL IVP SCH (09:18)
--- NOTE | 2024-11-25 11:28 | PROVIDER PROGRESS NOTE ---
Subjective Subjective Subjective: This morning, patient still feels weak. He has not had any more episodes of diarrhea. He has no fevers or chills. He has had no more episodes of difficulty speaking, or any other weaknesses noted. We talked about how his echo is normal, and we are still waiting on his MRI. Current Medications Current Medications Current Medications: Current Medications Generic Name Dose Route Start Last Admin Trade Name Freq PRN Reason Stop Dose Admin Acetaminophen 1,000 mg 11/23/24 20:18 Acetaminophen 500 Mg Tablet PO Q6H PRN Mild Pain Or Fever>38c(100.4f) Acetaminophen 650 mg 11/24/24 12:21 Acetaminophen 325 Mg Tablet PO Q4HR PRN Pain 1 to 4, or Fever Apixaban 5 mg 11/24/24 09:00 11/25/24 09:18 Apixaban 5 Mg Tablet PO 5 mg BID MARISA Administration Atorvastatin Calcium 20 mg 11/23/24 22:00 11/24/24 20:45 Atorvastatin 10 Mg Tablet PO 20 mg HS MARISA Administration Benzonatate 100 mg 11/25/24 00:52 11/25/24 00:58 Benzonatate 100 Mg Capsule PO 100 mg TID PRN Administration Cough Ceftriaxone Sodium 1 gm 11/25/24 09:00 11/25/24 09:18 Ceftriaxone 1 Gm Vial IVP 1 gm DAILY MARISA Administration Finasteride 5 mg 11/25/24 09:00 11/25/24 09:18 Finasteride 5 Mg Tablet PO 5 mg DAILY MARISA Administration Metoprolol Succinate 75 mg 11/25/24 09:00 11/25/24 09:18 Metoprolol Succinate 25 Mg Tablet PO 75 mg DAILY MARISA Administration Ondansetron HCl 4 mg 11/23/24 20:18 Ondansetron 4 Mg/2 Ml Vial IVP Q6HR PRN Nausea / Vomiting Ondansetron HCl 4 mg 11/24/24 12:21 Ondansetron Odt 4 Mg Tablet TL Q6HR PRN Nausea / Vomiting Ondansetron HCl 4 mg 11/24/24 12:21 Ondansetron 4 Mg/2 Ml Vial IVP Q6HR PRN Nausea / Vomiting Pantoprazole Sodium 40 mg 11/24/24 07:00 11/25/24 06:08 Pantoprazole 40 Mg Tablet PO 40 mg QDAC MARISA Administration Sacubitril-Valsartan 1 each 11/25/24 09:00 11/25/24 09:18 [Entresto] 1 Each PO 1 each Tablet BID MARISA Administration Polyethylene Glycol 17 gm 11/25/24 09:00 11/25/24 09:21 Polyethylene Glycol 3350 17 Gm Packet PO 17 gm DAILY MARISA Administration Sodium Chloride 10 ml 11/24/24 12:21 Sodium Chloride Flush 0.9% 10 Ml Syringe IVP PRN PRN NEEDED PER PROVIDER ORDERS Sodium Chloride 10 ml 11/24/24 17:00 11/25/24 09:18 Sodium Chloride Flush 0.9% 10 Ml Syringe IVP 10 ml 0100,0900,1700 MARISA Administration Tamsulosin HCl 0.4 mg 11/25/24 21:00 Tamsulosin 0.4 Mg Capsule PO QPM [facility] Objective Vital Signs/Intake & Output Reviewed Vital Signs: Yes Vital Signs: Vital Signs x48h Temp Pulse Resp BP Pulse Ox 11/25/24 08:40 98.2 F 81 18 124/56 L 97 11/25/24 03:36 98.1 F 81 20 136/62 H 96 Intake & Output: Intake & Output 11/22/24 11/23/24 11/24/24 11/25/24 23:59 23:59 23:59 23:59 Intake Total 1000 / 1000 3220 / 3220 720 / 720 Output Total 350 / 350 400 / 400 Balance 650 / 650 2820 / 2820 720 / 720 Weight (kg) 72.575 kg 76.374 kg Objective General Appearance: positive No acute distress and Alert; negative Anxious Eyes Bilateral: positive Normal inspection, PERRL and EOMI ENT: positive ENT inspection nml, Pharynx nml and No signs of dehydration Neck: positive Nml inspection, Thyroid nml and No JVD Respiratory: positive Chest non-tender, No respiratory distress and Breath sounds nml; negative Wheezes, Rales or Rhonchi Cardiovascular: positive No murmur, No gallop and Irregularly irregular; negative Tachycardia or Systolic murmur Abdomen: positive Non-tender, No organomegaly and No distention; negative Guarding or Splenomegaly Back: positive Nml inspection; negative CVA tenderness (R) or CVA tenderness (L) Skin: positive Color nml, No rash, Warm and Dry Extremities: positive Non-tender, Full ROM, Nml appearance and No pedal edema Neurologic/Psychiatric: positive Oriented x3, Motor nml and Mood/affect nml Lab Results 11/25/24 04:34 11/25/24 04:34 Other Labs: Lab Results x24hrs 11/25/24 Range/Units 04:34 WBC 6.1 (4.8-10.8) x10^3/uL RBC 2.97 L (4.70-6.10) 10^6/uL Hgb 8.6 L (14.0-18.0) g/dL Hct 26.9 L (42.0-52.0) % MCV 90.6 (80.0-94.0) fL MCH 29.0 (27.0-31.0) pg MCHC 32.0 (32.0-36.0) g/dL RDW 13.4 (12.0-15.0) % Plt Count 300 (130-450) 10^3/uL MPV 8.3 (7.4-11.4) fL Sodium 128 L (135-145) mmol/L Potassium 4.0 (3.5-4.5) mmol/L Chloride 100 L (101-111) mmol/L Carbon Dioxide 23 (21-32) mmol/L Anion Gap 5.0 L (6-13) BUN 10 (6-20) mg/dL Creatinine 0.7 (0.6-1.3) mg/dL Estimated GFR (MDRD) 108 (>89) Glucose 102 (74-104) mg/dL Calcium 8.2 L (8.5-10.3) mg/dL Magnesium 2.0 (1.7-2.3) mg/dL Assessment/Plan Problem List (1) Acute hyponatremia: Impression: Related to GI losses, diarrhea. Hold spironolactone and Lasix at this time. Received 2.5 L of IV fluid resuscitation. Not continued. Goal correction of 6-8 mill equivalents in 24 hours. Appropriately improving. Continue to trend twice daily. (2) Expressive aphasia: Impression: Patient presented with expressive aphasia which is now completely resolved. No other focal neurological deficits noted. ECHO within normal limites. MRI brain ordered, pending. Patient is already on anticoagulation, continued at this time. Continue statin as well. (3) Heart failure with reduced ejection fraction: Impression: EKG did show left bundle branch block, which is not new for the patient. Cardiology records are requested. Troponin was slightly elevated, is now downtrending. No active chest pain noted. Echo is negative for any acute abnormalities. Continue Entresto and metoprolol. Hold spirnolactone, Lasix at this time as patient is volume depleted. (4) High cholesterol: Impression: Continue statin. (5) BPH loc w urin obs/LUTS: Impression: Continue Flomax and finasteride. Patient is having dysuria. UA was negative but was recently on antibiotics. Will continue Rocephin at this time. (6) Atrial fibrillation: Impression: Continue Eliquis while inpatient, continue metoprolol. Qualifiers: Atrial fibrillation type: unspecified chronic Qualified Code(s): I48.20 - Chronic atrial fibrillation, unspecified
--- NOTE | 2024-11-25 17:52 | PT Plan of Care ---
PT Inpatient Plan of Care DIAGNOSIS Diagnosis: acute hyponatremia Diagnosis: PMH of HF with decreased EF Referring Provider: Faustino Damian Patient Status: Inpatient CHIEF COMPLAINT Chief Complaint: weakness Onset of Chief Complaint: DONOR SERVICES SPECIALIST on 11/23/24 MEDICAL/SURGICAL HISTORY Medical History High cholesterol HTN (hypertension) Cervical spinal stenosis BPH loc w urin obs/LUTS Prostate cancer BALANCE/FUNCTIONAL RESULTS Sitting Balance: Good Standing Balance: Good ASSESSMENT Assessment: The pt is an 84 y/o M who arrived to the ED on 11/23/24 due to pro gressive weakness and new onset of expressive aphasia after being ill following recently receiving multiple vaccines. He was hospitalized with acute hyponatremia and is s/p INGRID with anterior approach on 10/28/24. Please see chart for complete medical hx. The pt was received resting comfortably supine in bed and presented today with good B UE and LE strength, mildly decreased activity tolerance, and good safety awareness throughout all functional mobility assessment. At this time the pt does not appear to require continued skilled PT intervention while in the acute setting and it is recommended that he DC home and resume OPPT for his INGRID once medically stable. This plan was discussed with the pt, he was in agreement with this. At the end of the session the pt was sitting up in a chair with call light in reach and all needs met. RN and MD updated on pt's status and DC rec, no goals will be set as this is an eval only. PATIENT/FAMILY GOALS Patient/Family Goals: To get home ROSA [employer]LE[employer] PLAN Frequency: Evaluation only, no further P.T. DISCHARGE RECOMMENDATIONS Discharge Location: Previous Living Situation Support/Services Needed: Outpt. P.T. Other Discharge Equipment: pt owns all recommended DME Transport Needs at Discharge: Personal vehicle
[2024-11-25] MEDS: TAMSULOSIN 0.4 MG CAPSULE PO SCH (20:33)
[2024-11-26 04:57] LABS: HCT - HEMATOCRIT 25.5 % (42.0-52.0); HGB - HEMOGLOBIN 8.5 g/dL (14.0-18.0); MEAN PLATELET VOLUME 8.3 fL (7.4-11.4); PLT - PLATELET COUNT 288.0 10^3/uL (130-450); RED CELL DISTRIBUTION WIDTH 13.3 % (12.0-15.0)
[2024-11-26 05:16] LABS: BUN - BLOOD UREA NITROGEN 9.0 mg/dL (6-20); CARBON DIOXIDE - CO2 25.0 mmol/L (21-32); CREATININE 0.8 mg/dL (0.6-1.3); GFR - MDRD 92.0 (>89)
[2024-11-26 09:16] VITALS: TEMP 98.1
[2024-11-26] MEDS: SODIUM CHLORIDE 0.9% 500 ML IV ONE (11:17)
--- NOTE | 2024-11-26 11:49 | Discharge Summary ---
"Discharge Summary Admit Date: 11/24/24 Discharge Date: 11/26/24 Discharging Provider: Dr. Faustino Damian Primary Care Provider: Erica Goode Code Status: Attempt Resuscitation Discharge Facility Name: Home, self care DIAGNOSES Discharge Diagnoses with Status of Each Condition: Acute hyponatremiaresolving. Due to GI losses and diarrhea. Hold spironolactone at this time. Received IV fluid resuscitation. Corrected appropriately. Advised to hold spironolactone discharge and follow-up with 1 to 2 weeks to recheck sodium as well. Expressive aphasiaresolved. CT head, CTA, MRI of the brain negative for any acute ischemic infarcts. Patient is already on a blood thinner, continue at this time. Continue statin. Echo also completed with recovered ejection fraction, no valvular disease. High cholesterolcontinue statin. BPHcontinue Flomax and finasteride. Patient was being actively treated for urinary tract infection. Was switched to Rocephin while here. Has effectively completed a course of IV antibiotics at this time with the combination of the IV and the home oral antibiotics. Thanks. Atrial fibrillationcontinue dabigatran, metoprolol. HPI History of Present Illness: Patient is a 84-year-old male with a history of heart failure with reduced ejection fraction, atrial fibrillation on Eliquis who presents for a few complaints. About a week ago, patient got his COVID-vaccine, RSV vaccine, as well as his pneumo VAX. Since then, he has had some ongoing fevers, chills, mild upper respiratory symptoms. Following this, he had some large-volume, loose stools which lasted for a few days. A couple days ago, he was talking to his , when he suddenly was unable to form words. He stated that he could think of the words, he could just not get them out. This has happened to him once before. He has never had a stroke in the past. The symptoms resolved quickly, they have not recurred. At this time, he feels a lot better. His weakness and dizziness has improved quite a bit as well. He denies any fevers, chills. He does have a mild cough and runny nose. In the emergency room, patient was normotensive, blood pressure was 123/62, heart rate was 74, satting 97% on room air. He was afebrile. Lab work showed a normal white count, hemoglobin of 8.7; we do not have a baseline for him in recent years. He denies any dark stools, bleeding etc., especially on his blood thinner. His sodium was found to be very low at 122, and it is improved to 129 with some IV fluids that he received in the emergency room, 2.5 L. His troponin was mildly elevated at 38.2, when as high as 44, and is now trending down to 42.2. He has had no chest pain. His EKG does show a left bundle branch block, which he states is known. I have requested records from his rn float. He was admitted for hyponatremia, generalized weakness, as well as this expressive aphasia. CONSULTS | PROCEDURES Consultations: PT Procedures: CT head, CTA, MRI of the brain, echocardiogram HOSPITAL COURSE Hospital Course: Patient is a onofre 84-year-old man with history of heart failure with reduced ejection fraction, atrial fibrillation on data gastrin presented for diarrhea, as well as weakness. He was found to be hyponatremic to 122. This improved with IV fluids. He was advised to hold his spironolactone on discharge. He also had an episode of expressive aphasia. CTA and CT head were negative for any acute infarcts. MRI of the brain was also done, and this was negative for any acute infarcts as well. He is already on anticoagulation, so antiplatelet was not added for fear of increased risk of bleeding. Echocardiogram was done which actually shows recovered ejection fraction and no valvular disease. He was advised to hold his spironolactone, and continue close follow-up with his primary care provider and rn float, and discharged home. ALLERGIES Allergies Allergy/AdvReac Type Severity Reaction Status Date / Time No Known Drug Allergies Allergy Verified 11/23/24 14:24 MEDICATIONS Ambulatory Orders Medication Instructions Recorded Confirmed dabigatran etexilate 150 mg 150 mg ORAL BID 05/22/22 0 11/23/24 capsule (Pradaxa) rosuvastatin 10 mg tablet (Crestor) 10 mg PO HS 11/23/24 sacubitril 97 mg-valsartan 103 mg 1 ea PO BID 05/22/22 11/23/24 tablet (Entresto) spironolactone 25 mg tablet 25 mg PO DAILY 05/22/22 (Aldactone) Held on 11/26/24. Instructions: Resume on 12/03/24. Hold for one week. finasteride 5 mg tablet 5 mg PO QDAY #90 tabs 11/23/24 tamsulosin 0.4 mg capsule (Flomax) 0.4 mg PO .nightly #90 caps 04/20/24 11/23/24 metoprolol succinate 50 mg 75 mg PO DAILY 11/24/24 tablet,extended release 24 hr PHYSICAL EXAM AT DISCHARGE Vital Signs: Vital Signs x48h Temp Pulse Resp BP Pulse Ox 11/26/24 08:00 98.1 F 65 20 122/54 L [address] [place] [address] PATIENT: DENTON MEMBRENO PREFERRED NAME: PRONOUNS: MEDICAL RECORD#:[id number] DATE OF :1940 DATE OF SERVICE:11/24/24 cc: Franco Light MD [facility] report # [id number] Chief Complaint Chief Complaint Chief Complaint: Expressive aphasia, diarrhea, weakness History of Present Illness Admitted From Admitted From:: Home History Obtained From Records Reviewed: EMR History obtained from: Patient Exam Limitations: None History of Present Illness HPI Comment/Other: Patient is a 84-year-old male with a history of heart failure with reduced ejection fraction, atrial fibrillation on Eliquis who presents for a few complaints. About a week ago, patient got his COVID-vaccine, RSV vaccine, as well as his pneumo VAX. Since then, he has had some ongoing fevers, chills, mild upper respiratory symptoms. Following this, he had some large-volume, loose stools which lasted for a few days. A couple days ago, he was talking to his , when he suddenly was unable to form words. He stated that he could think of the words, he could just not get them out. This has happened to him once before. He has never had a stroke in the past. The symptoms resolved quickly, they have not recurred. At this time, he feels a lot better. His weakness and dizziness has improved quite a bit as well. He denies any fevers, chills. He does have a mild cough and runny nose. In the emergency room, patient was normotensive, blood pressure was 123/62, heart rate was 74, satting 97% on room air. He was afebrile. Lab work showed a normal white count, hemoglobin of 8.7; we do not have a baseline for him in recent years. He denies any dark stools, bleeding etc., especially on his blood thinner. His sodium was found to be very low at 122, and it is improved to 129 with some IV fluids that he received in the emergency room, 2.5 L. His troponin was mildly elevated at 38.2, when as high as 44, and is now trending down to 42.2. He has had no chest pain. His EKG does show a left bundle branch block, which he states is known. I have requested records from his rn float. He was admitted for hyponatremia, generalized weakness, as well as this expressive aphasia. Meds/Allgy Home Medications Ambulatory Orders Medication Instructions Recorded Confirmed dabigatran etexilate 150 mg 150 mg ORAL BID 05/22/22 11/23/24 capsule (Pradaxa) rosuvastatin 10 mg tablet (Crestor) 10 mg PO HS 05/22/22 11/23/24 sacubitril 97 mg-valsartan 103 mg 1 ea PO BID 05/22/22 11/23/24 tablet (Entresto) spironolactone 25 mg tablet 25 mg PO DAILY 05/22/22 11/23/24 (Aldactone) finasteride 5 mg tablet 5 mg PO QDAY #90 tabs 01/26/24 11/23/24 tamsulosin 0.4 mg capsule (Flomax) 0.4 mg PO .nightly #90 caps 04/20/24 ciprofloxacin HCl 500 mg tablet 500 mg PO Q12H 11/22/24 11/23/24 (Cipro) metoprolol succinate 50 mg 75 mg PO DAILY 11/24/24 11/24/24 tablet,extended release 24 hr Allergies Allergies Allergy/AdvReac Type Severity Reaction Status Date / Time No Known Drug Allergies Allergy Verified 11/23/24 14:24 [facility] Active Problems All Active Problems (Updated 11/24/24 @ 14:06 by Faustino Damian MD) Atrial fibrillation (Acute) Heart failure with reduced ejection fraction (Acute) Expressive aphasia (Acute) Weakness (Acute) Fatigue (Acute) Acute hyponatremia (Acute) Scalp bruising (Acute) Medical History Medical History High cholesterol HTN (hypertension) Cervical spinal stenosis BPH loc w urin obs/LUTS Prostate cancer Social History Social History Smoking Status: Former smoker If you are a former smoker, when did you quit? (Date/Year): 07/2024 Number of Years Smoked: 35 Do you vape?: No Relationship: Level: Independent Home Mobility Equipment: Cane Do you feel safe in your home environment?: Yes Suffered physical, verbal, emotional, or financial abuse?: No History of Abuse: No Are you sexually active?: No POLST Patient has POLST: No Review of Systems Constitutional Reports: Fatigue, Weakness and Poor appetite; Denies: Fever, Chills or Malaise Eyes Denies: Pain, Irritation, Blurry vision, Vision loss, Diplopia or Eye discomfort Ears, nose, mouth, and throat Denies: Ear pain, Hearing loss, Tinnitus, Nose bleeds or Nasal discharge Cardiovascular Denies: Irregular heart rate, chest pain, palpitations, edema, Syncope or shortness of breath with exertion Respiratory Denies: Shortness of breath, Cough, Sputum production or Wheezing Gastrointestinal Reports: Poor appetite and Diarrhea; Denies: Abdominal pain, Abdominal distention, Nausea, Vomiting, Constipation, Bloating or Belching Genitourinary Reports: Painful urination and Urinary urgency; Denies: Urinary frequency Musculoskeletal Denies: Back pain, Extremity pain, Extremity swelling or Joint pain Integumentary/Breast Denies: Rash, Itching, Dryness, Redness or Skin pain Neurological Reports: General weakness, Dizziness, Confusion and Difficulty communicating thoughts; Denies: Headache, Weakness in extremities, Numbness in extremities or Abnormal gait Psychiatric Denies: Depression or Anxiety Endocrine Reports: Fatigue; Denies: Excessive urination or Excessive thirst Hematologic/Lymphatic Denies: Anemia, Easy bruising or Easy bleeding Allergic/Immunologic Denies: Hives, Tongue swelling, Facial swelling or Wheezing Prior Level of Functionality: Independent of ADLs. Exam Constitutional normal general appearance, no apparent distress and average body habitus HENMT normocephalic, head/scalp atraumatic and hearing grossly normal bilaterally Eyes PERRL, EOMs intact bilaterally and conjunctivae normal Neck/C-Spine visual inspection normal, trachea midline and cervical spine nontender Chest inspection of chest normal Respiratory breath sounds equal bilaterally, normal respiratory effort, clear to auscultation bilaterally, no wheezes, no rales and no retractions Cardiovascular normal heart rate noted, rhythm abnormal (irregular), no gallop, no rub and no murmur Gastrointestinal abdomen normal to inspection, abdomen soft to palpation and nontender to palpation Genitourinary no CVA tenderness and bladder normal to palpation Back/Pelvis spine normal to inspection, no thoracic spine tenderness and no lumbar spine tenderness Extremities normal to inspection, normal to palpation, no tenderness and full ROM Neurology no movement abnormality noted, no focal motor deficit noted and speech normal Psychiatry mental status grossly normal, oriented x3, thought process normal, cooperative and affect normal Skin skin color normal, no rash, no lesions and no wounds LABS 11/26/24 04:30 11/26/24 04:30 FOLLOW UP Follow Up: Follow-up primary care provider. Follow-up cardiology. TIME SPENT Time Spent in Discharge (Minutes): 35 Discharge Plan Discharge Patient Disposition: 01 Home, Self Care Condition: Good Prescriptions: Continued tamsulosin [Flomax] 0.4 mg capsule 0.4 mg PO .nightly Qty: 90 3RF rosuvastatin [Crestor] 10 MG tablet 10 mg PO HS dabigatran etexilate [Pradaxa] 150 MG capsule 150 mg ORAL BID sacubitril-valsartan [Entresto] 1 EACH tablet 1 ea PO BID metoprolol succinate 50 mg tablet extended release 24 hr 75 mg PO DAILY finasteride 5 mg tablet 5 mg PO QDAY Qty: 90 3RF Held spironolactone [Aldactone] 25 MG tablet 25 mg PO DAILY Hold Instructions: Resume on 12/03/24. Hold for one week. Discontinued ciprofloxacin HCl [Cipro] 500 mg tablet 500 mg PO Q12H Activity Restrictions: Activity as Tolerated Diet: Regular Health Concerns: You came in because you were feeling weak, and had diarrhea at home. Your sodium was found to be very low at 122. We have slowly increased it back up to almost normal with IV hydration. Please continue to hold your spironolactone for another week, or until your diarrhea has completely resolved. While you were here, you also mentioned that during this weakness, you had an episode where you had difficulty expressing your own thoughts, and verbalizing your thoughts. This is something called expressive aphasia. Your CT head, CTA and MRI did not show any acute stroke or bleed. They were all normal. Your ECHO of your heart shows no valvular disease and your ejection fraction (a measure of your heart function) was normal too. Please continue taking your blood thinner as prescribed, and continue following up with your heart doctor. The physical therapist also worked with you, and you did great. Glad you are recovering well from your hip surgery. I hope you are out flyfishing soon! 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 Print Language: Spanish Patient Instructions: TIA Dc Stand Alone Forms: PCP List Vitals documented within 30 minutes of discharge?: Yes"
--- NOTE | 2024-11-26 11:53 | MRI Report ---
PROCEDURE: MRI Brain WO INDICATIONS: TIA TECHNIQUE: Multisequence MRI of the brain was performed without intravenous contrast. COMPARISON: 11/23/2024 CT FINDINGS: Image quality: Diagnostic CSF spaces: Basal cisterns are patent. Lateral ventricles are symmetric. Volume: Periventricular white matter signal abnormality is commonly seen with chronic microangiopathy. Volume loss is present. These findings are mild to moderate . Brain: No diffusion restriction or acute hemorrhage. No significant area of acute parenchymal edema. Craniofacial structures: No significant paranasal sinus opacity. Mild mucosal thickening is present. IMPRESSION: No acute infarct or hematoma. Reviewed by: Goran Nesbitt MD on 11/26/2024 11:52 AM PDT Approved by: Goran Nesbitt MD on 11/26/2024 11:52 AM PDT Station ID: [id number]
[2024-11-26 14:05] VITALS: BP 132/59; O2SAT 98
[2024-11-26 17:09] LABS: OSMOLALITY 262 mOsmol/kg (280-301)
[2024-11-26 18:08] LABS: OSMOLALITY URINE 311 mOsmol/kg (.)
== END 2024-11-26 13:55 | disposition home or self-care (01) | DRG 641 ==
LOC: ED 14:11 → MS3 14:11
PROVIDERS: ADMIT Internal Medicine; ATTEND Internal Medicine